=== PATIENT | female | born 1965 | race Caucasian/White ===

== ENCOUNTER 2016-08-27 19:55 | Observation (INO) ==
[2016-08-27] MEDS ORDERED: 0.9 % Sodium Chloride 1,000 ML IV ONE (20:17)
[2016-08-27 20:35] LABS: Bilirubin,Urine Negative (Negative); Blood,Urine Negative (Negative); Clarity,Urine Clear (Clear); Color,Urine Yellow (Yellow); Glucose,Urine (UA) >=1000 mg/dL (Normal); Ketones,Urine Negative (Negative); Leukocyte Esterase,Urine Negative (Negative); Nitrite,Urine Negative (Negative); PH,Urine 6.5 pH Units (5.0-8.0); Protein,Urine Negative (Neg-Trace); Specific Gravity,Urine > 1.030 (1.010-1.025); Urobilinogen,Urine Normal (Normal)
[2016-08-27 20:57] LABS: Basophils # 0.1 K/mcL (0.0-0.2); Basophils % 0.4 %; Eosinophils # 0.4 K/mcL (0.0-0.6); Hematocrit 42.2 % (35.3-44.9); Hemoglobin 14.7 g/dL (11.5-15.4); Immature Granulocytes % 0.6 % (0-4); Lymphocytes # 2.1 K/mcL (0.6-4.6); Lymphocytes % 14.8 %; Mean Corpuscular HGB Conc 34.8 g/dL (31.6-35.5); Mean Corpuscular Hemoglobin 29.4 pg (28.0-33.3); Mean Corpuscular Volume 84.4 fL (83.0-100.0); Mean Platelet Volume 12.2 fL (9.4-12.4); Monocytes # 0.6 K/mcL (0.0-1.3); Monocytes % 4.5 %; Neutrophils # 10.8 K/mcL (1.6-8.9); Platelet Count 218 K/mcL (140-400); Segmented Neutrophils % 76.7 %
[2016-08-27 21:10] LABS: Albumin 3.8 g/dL (3.5-5.0); Albumin/Globulin Ratio 0.9 (1.1-2.2); Bilirubin,Total 0.3 mg/dL (0.2-1.2); Calcium 9.1 mg/dL (8.6-10.8); Globulin 4.2 g/dL (2.4-3.5)
--- NOTE | 2016-08-27 21:29 | Emergency Department Note ---
Disposition Clinical Impression: Uncontrolled type 2 diabetes mellitus with hyperosmolar nonketotic hyperglycemia Disposition: Admitted As Inpatient Referrals: Unassigned,Provider [Non-Partnered Physician] - Forms: ED Satisfaction Letter General Adult HPI - General Chief complaint: ED Nausea/Vomiting/Diarrhea Stated complaint: Hyperglycemia Time Seen by Provider: 08/27/16 20:11 Source: patient Limitations: no limitations Nursing Notes Reviewed: Yes Vital Signs Reviewed: Yes - History of Present Illness HPI Narrative: Patient comes in with elevated blood sugar. Patient states she was seen here yesterday and diagnosed with diabetes. Her previous attending no admission was offered a patient but patient left AGAINST MEDICAL ADVICE. Patient had a blood sugar was elevated today and has had increased urination associated. Patient used her significant other's glucometer and noted that the blood sugar was almost 500. Patient presented emergency department for further evaluation. Patient denies chest pain or shortness of breath. Pain Scale: 0 - Related Data Home Medications Medication Instructions Recorded Confirmed Cetirizine HCl [Zyrtec] 10 mg PO DAILY 08/06/15 08/27/16 Hydrochlorothiazide 25 mg PO DAILY 08/06/15 08/27/16 Fluticasone Propionate Nasal 100 mcg NS DAILY 08/27/16 08/27/16 [Flonase] Ibuprofen [Ibuprofen] 800 mg PO TID PRN 08/27/16 08/27/16 Previous Rx's Medication Instructions Recorded Metformin [Glucophage] 500 mg PO BIDWM #30 tablet 08/26/16 Posaconazole [Noxafil] 300 mg PO DAILY #33 tablet. 08/26/16 Allergies Allergy/AdvReac Type Severity Reaction Status Date / Time Amoxicillin [From Amoxil] Allergy Rash Verified 08/27/16 20:09 All systems ED: reviewed and negative except as stated. Past Medical History - Past Medical History Source: patient Medical history: Reports: diabetes, hypertension, other Surgical history: Reports: non-contributory Psychiatric history: Reports: anxiety [employer] history: Reports: bilateral tubal ligation - Social History Smoking Status: Current every day smoker Smokeless Tobacco Status: No Alcohol use: Reports: none Drug use: Reports: none Physical Exam - General Limitations: no limitations General appearance: alert - Head Head exam: atraumatic, normocephalic, normal inspection - Eye Eye exam: Present: normal appearance, PERRL, EOMI - ENT ENT exam: normal exam, normal oropharynx, mucous membranes moist - Neck Neck exam: Present: normal inspection, full ROM, trachea midline - Chest Chest inspection: Present: normal inspection, symmetric chest wall rise - Respiratory Respiratory exam: Present: normal lung sounds bilaterally - Cardiovascular Cardiovascular exam: Present: normal rhythm, tachycardia - Abdominal Exam Abdominal exam: Present: soft, Non-Tender. Absent: tenderness, distention, guarding, rebound, rigidity - Extremities Exam Extremities exam: Present: normal inspection, full ROM. Absent: tenderness, pedal edema - Back Exam Back exam: Present: normal inspection, full ROM. Absent: tenderness - Neurological Exam Neurological exam: Present: alert, oriented X3 - Psychiatric Psychiatric exam: Present: normal affect, normal mood - Skin Skin exam: Present: warm, dry, intact, normal color Course Vital Signs Temperature 97.3 F L 08/27/16 20:04 Pulse Rate 125 08/27/16 20:04 Respiratory Rate 16 08/27/16 20:04 Blood Pressure 162/96 08/27/16 20:04 O2 Sat by Pulse Oximetry 98 08/27/16 20:04 Temperature 97.3 F L 08/27/16 20:04 Pulse Rate 125 08/27/16 20:09 Respiratory Rate 16 08/27/16 20:09 Blood Pressure 162/96 08/27/16 20:09 O2 Sat by Pulse Oximetry 98 08/27/16 20:09 Oxygen Delivery Oxygen Delivery Room Air Medical Decision Making - Lab Data Lab results reviewed: Yes I reviewed the patient's lab results. Result diagrams: 08/27/16 20:39 08/27/16 20:39 Lab Results 08/27/16 08/27/16 08/27/16 Range/Units 19:58 20:00 20:22 WBC (4.3-11.1) K/mcL RBC (3.82-4.97) M/mcL Hgb (11.5-15.4) g/dL Hct (35.3-44.9) % MCV (83.0-100.0) fL MCH (28.0-33.3) pg MCHC (31.6-35.5) g/dL RDW (11.5-14.5) % Plt Count (140-400) K/mcL MPV (9.4-12.4) fL Immature Gran % (0-4) % Seg Neutrophils % % Lymphocytes % % Monocytes % % Eosinophils % % Basophils % % Neutrophils # (1.6-8.9) K/mcL Lymphocytes # (0.6-4.6) K/mcL Monocytes # (0.0-1.3) K/mcL Eosinophils # (0.0-0.6) K/mcL Basophils # (0.0-0.2) K/mcL Sodium (136-145) mEq/L Potassium (3.5-4.5) mEq/L Chloride (98-109) mEq/L Carbon Dioxide (19-29) mEq/L BUN (7-20) mg/dL Creatinine (0.57-1.11) mg/dL Est GFR ( Amer) (> 60) Est GFR (Non-Af Amer) (> 60) BUN/Creatinine Ratio (6-26) Glucose (70-99) mg/dL POC Glucose > 600 H* > 600 H* (58-89) Calculated Osmolality (280-300) Lactic Acid (0.5-2.2) mmol/L Calcium (8.6-10.8) mg/dL Total Bilirubin (0.2-1.2) mg/dL AST (5-34) Units/L ALT (0-55) Units/L Alkaline Phosphatase (38-126) Units/L Troponin I (0-0.03) ng/mL Serum Total Protein (6.0-8.3) g/dL Albumin (3.5-5.0) g/dL Globulin (2.4-3.5) g/dL Albumin/Globulin Ratio (1.1-2.2) Urine Color Yellow (Yellow) Urine Clarity Clear (Clear) Urine pH 6.5 (5.0-8.0) pH Units Ur Specific [place] > 1.030 H (1.010-1.025) Urine Protein Negative (Neg-Trace) mg/dL Urine Glucose (UA) >=1000 H (Normal) mg/dL Urine Ketones Negative (Negative) mg/dL Urine Blood Negative (Negative) Urine Nitrite Negative (Negative) Urine Bilirubin Negative (Negative) Urine Urobilinogen Normal (Normal) mg/dL Ur Leukocyte Esterase Negative (Negative) Ur Culture Indicated? NO (NO) 08/27/16 08/27/16 08/27/16 Range/Units 20:39 20:39 20:39 WBC 14.0 H (4.3-11.1) K/mcL RBC 5.00 H (3.82-4.97) M/mcL Hgb 14.7 (11.5-15.4) g/dL Hct 42.2 (35.3-44.9) % MCV 84.4 (83.0-100.0) fL MCH 29.4 (28.0-33.3) pg MCHC 34.8 (31.6-35.5) g/dL RDW 13.0 (11.5-14.5) % Plt Count 218 (140-400) K/mcL MPV 12.2 (9.4-12.4) fL Immature Gran % 0.6 (0-4) % Seg Neutrophils % 76.7 % Lymphocytes % 14.8 % Monocytes % 4.5 % Eosinophils % 3.0 % Basophils % 0.4 % Neutrophils # 10.8 H (1.6-8.9) K/mcL Lymphocytes # 2.1 (0.6-4.6) K/mcL Monocytes # 0.6 (0.0-1.3) K/mcL Eosinophils # 0.4 (0.0-0.6) K/mcL Basophils # 0.1 (0.0-0.2) K/mcL Sodium 132 L (136-145) mEq/L Potassium 3.0 L (3.5-4.5) mEq/L Chloride 95 L (98-109) mEq/L Carbon Dioxide 24 (19-29) mEq/L BUN 23 H (7-20) mg/dL Creatinine 1.53 H (0.57-1.11) mg/dL Est GFR ( Amer) 43 L (> 60) Est GFR (Non-Af Amer) 36 L (> 60) BUN/Creatinine Ratio 15 (6-26) Glucose 731 H* (70-99) mg/dL POC Glucose (58-89) Calculated Osmolality 313 H (280-300) Lactic Acid 3.2 H (0.5-2.2) mmol/L Calcium 9.1 (8.6-10.8) mg/dL Total Bilirubin 0.3 (0.2-1.2) mg/dL AST 35 H (5-34) Units/L ALT 53 (0-55) Units/L Alkaline Phosphatase 100 (38-126) Units/L Troponin I (0-0.03) ng/mL Serum Total Protein 8.0 (6.0-8.3) g/dL Albumin 3.8 (3.5-5.0) g/dL Globulin 4.2 H (2.4-3.5) g/dL Albumin/Globulin Ratio 0.9 L (1.1-2.2) Urine Color (Yellow) Urine Clarity (Clear) Urine pH (5.0-8.0) pH Units Ur Specific [place] (1.010-1.025) Urine Protein (Neg-Trace) mg/dL Urine Glucose (UA) (Normal) mg/dL Urine Ketones (Negative) mg/dL Urine Blood (Negative) Urine Nitrite (Negative) Urine Bilirubin (Negative) Urine Urobilinogen (Normal) mg/dL Ur Leukocyte Esterase (Negative) Ur Culture Indicated? (NO) 08/27/16 Range/Units 20:39 WBC (4.3-11.1) K/mcL RBC (3.82-4.97) M/mcL Hgb (11.5-15.4) g/dL Hct (35.3-44.9) % MCV (83.0-100.0) fL MCH (28.0-33.3) pg MCHC (31.6-35.5) g/dL RDW (11.5-14.5) % Plt Count (140-400) K/mcL MPV (9.4-12.4) fL Immature Gran % (0-4) % Seg Neutrophils % % Lymphocytes % % Monocytes % % Eosinophils % % Basophils % % Neutrophils # (1.6-8.9) K/mcL Lymphocytes # (0.6-4.6) K/mcL Monocytes # (0.0-1.3) K/mcL Eosinophils # (0.0-0.6) K/mcL Basophils # (0.0-0.2) K/mcL Sodium (136-145) mEq/L Potassium (3.5-4.5) mEq/L Chloride (98-109) mEq/L Carbon Dioxide (19-29) mEq/L BUN (7-20) mg/dL Creatinine (0.57-1.11) mg/dL Est GFR ( Amer) (> 60) Est GFR (Non-Af Amer) (> 60) BUN/Creatinine Ratio (6-26) Glucose (70-99) mg/dL POC Glucose (58-89) Calculated Osmolality (280-300) Lactic Acid (0.5-2.2) mmol/L Calcium (8.6-10.8) mg/dL Total Bilirubin (0.2-1.2) mg/dL AST (5-34) Units/L ALT (0-55) Units/L Alkaline Phosphatase (38-126) Units/L Troponin I 0.00 (0-0.03) ng/mL Serum Total Protein (6.0-8.3) g/dL Albumin (3.5-5.0) g/dL Globulin (2.4-3.5) g/dL Albumin/Globulin Ratio (1.1-2.2) Urine Color (Yellow) Urine Clarity (Clear) Urine pH (5.0-8.0) pH Units Ur Specific [place] (1.010-1.025) Urine Protein (Neg-Trace) mg/dL Urine Glucose (UA) (Normal) mg/dL Urine Ketones (Negative) mg/dL Urine Blood (Negative) Urine Nitrite (Negative) Urine Bilirubin (Negative) Urine Urobilinogen (Normal) mg/dL Ur Leukocyte Esterase (Negative) Ur Culture Indicated? (NO) - EKG Data EKG #1 EKG attestation: Yes I reviewed and interpreted this EKG. EKG results narrative: Unchanged from previous EKG shows normal: sinus rhythm Rate: normal Rhythm: NSR Critical Care Time Total Critical Care Time: 30 Attestation: Critical care performed: Time is exclusive of separately billable procedures. Time includes: direct patient care, patient reassessment, coordination of patient care, interpretation of data (laboratory data, radiology data, and respiratory data), review of patient's medical records, medical consultation and documentation of patient care. Procedures included in critical care time: Procedures excluded from critical care time:
[2016-08-27] MEDS ORDERED: *HR* Dextrose 50 % in Water (Syg) 50 ML SYRINGE IVP PRN ×2 (21:31→22:12)
[2016-08-27] MEDS ORDERED: Insulin Human Regular 100 UNIT in 0.9 % Sodium Chloride 100 ML IVC SCH (21:45)
[2016-08-27] MEDS ORDERED: Naloxone 0.4 MG/ML INJ IVP PRN (22:12)
[2016-08-27] MEDS ORDERED: *HR* Promethazine 25 MG/ML VIAL IVP PRN (22:12)
[2016-08-27] MEDS ORDERED: Insulin LISPRO 300 UNITS/3 ML VIAL SQ PRN ×2 (22:12)
[2016-08-27] MEDS ORDERED: D5% in 0.45% NACL 1,000 ML IVC PRN (22:12)
[2016-08-27] MEDS ORDERED: Insulin LISPRO 300 UNITS/3 ML VIAL SQ ONE (22:12)
[2016-08-27] MEDS ORDERED: *HR* Morphine 2 MG/ML SYRINGE IVP PRN (22:12)
[2016-08-27] MEDS ORDERED: *HR* OxyCODONE Immed Rel 5 MG TABLET PO PRN (22:12)
[2016-08-27] MEDS ORDERED: 0.9 % Sodium Chloride 1,000 ML IV SCH ×2 (22:15)
[2016-08-27] MEDS ORDERED: 0.45 % Sodium Chloride w/KCl 20 MEQ/1,000 ML MLS IVC SCH (22:15)
[2016-08-27] MEDS ORDERED: 0.9 % Sodium Chloride w KCl 20 MEQ/1,000 ML MLS IVC SCH ×2 (22:15)
[2016-08-27] MEDS ORDERED: Calcium Gluconate 1,000 MG in D5% in Water 100 ML IVPB PRN (22:30)
[2016-08-27] MEDS ORDERED: Sodium Phosphate 30 MMOL in D5% in Water 100 ML IVPB PRN (22:30)
[2016-08-27] MEDS ORDERED: Potassium Phosphate 44 MEQ in 0.9 % Sodium Chloride 250 ML IVPB PRN (22:30)
[2016-08-27 22:50] LABS: Basophils # 0.1 K/mcL (0.0-0.2); Basophils % 0.4 %; Eosinophils # 0.4 K/mcL (0.0-0.6); Eosinophils % 2.7 %; Hematocrit 39.2 % (35.3-44.9); Hemoglobin 13.8 g/dL (11.5-15.4); Immature Granulocytes % 0.6 % (0-4); Lymphocytes # 2.7 K/mcL (0.6-4.6); Lymphocytes % 18.8 %; Mean Corpuscular HGB Conc 35.2 g/dL (31.6-35.5); Mean Corpuscular Hemoglobin 29.9 pg (28.0-33.3); Mean Corpuscular Volume 84.8 fL (83.0-100.0); Monocytes # 0.6 K/mcL (0.0-1.3); Monocytes % 4.4 %; Neutrophils # 10.4 K/mcL (1.6-8.9); Platelet Count 180 K/mcL (140-400); Red Blood Count 4.62 M/mcL (3.82-4.97); Segmented Neutrophils % 73.1 %
[2016-08-27 22:53] LABS: VBG HCO3 29.2 mEq/L (21-27); VBG PH 7.43 pH Units (7.32-7.42)
[2016-08-27 22:55] LABS: Ionized Calcium 1.12 mmol/L (1.15-1.35)
[2016-08-27 23:04] LABS: Magnesium 1.5 mg/dL (1.6-2.6); Phosphorous 1.8 mg/dL (2.3-4.7)
[2016-08-27 23:43] LABS: BUN/Creatinine Ratio 18 (6-26); Blood Urea Nitrogen 21 mg/dL (7-20); Carbon Dioxide 24 mEq/L (19-29); Chloride 99 mEq/L (98-109); Glucose 489 mg/dL (70-99); Osmolality,Calculated 301 (280-300); Potassium 3.1 mEq/L (3.5-4.5); Sodium 133 mEq/L (136-145); eGFR For African Americans > 60 (> 60); eGFR For Non-African Americans 50 (> 60)
[2016-08-28] MEDS ORDERED: Albuterol 2.5 MG/3 ML NEBULIZER IH PRN (01:09)
[2016-08-28] MEDS: D5% in 0.45% NACL w KCl 20 MEQ/1,000 ML MLS IVC PRN ×2 (01:46→05:46)
[2016-08-28 02:56] LABS: Bilirubin,Urine Negative (Negative); Blood,Urine Negative (Negative); Clarity,Urine Clear (Clear); Color,Urine Yellow (Yellow); Glucose,Urine (UA) >=1000 mg/dL (Normal); Ketones,Urine Negative (Negative); Leukocyte Esterase,Urine Negative (Negative); Nitrite,Urine Negative (Negative); Protein,Urine Negative (Neg-Trace); Specific Gravity,Urine 1.025 (1.010-1.025); Urobilinogen,Urine Normal (Normal)
[2016-08-28] MEDS ORDERED: Insulin Human Regular 100 UNIT in 0.9 % Sodium Chloride 100 ML IVC SCH (03:00)
[2016-08-28 03:03] LABS: Amphetamine Screen,Urine Negative ng/mL (Cutoff=1000); Barbiturate Screen,Urine Negative ng/mL (Cutoff=200); Benzodiazepines Screen,Urine Negative ng/mL (Cutoff=200); Cannabinoid Screen,Urine Negative ng/mL (Cutoff = 50); Cocaine Screen,Urine Negative ng/mL (Cutoff= 300); Opiate Screen,Urine Negative ng/mL (Cutoff=300); Phencyclidine Screen,Urine Negative ng/mL (Cutoff=25)
[2016-08-28 03:22] LABS: Adenovirus Not Detected (Not Detect); Bordetella Pertussis Not Detected (Not Detect); Chlamydophila pneumoniae Not Detected (Not Detect); Coronavirus 229E Not Detected (Not Detect); Coronavirus HKU1 Not Detected (Not Detect); Coronavirus NL63 Not Detected (Not Detect); Coronavirus OC43 Not Detected (Not Detect); Human Metapneumovirus Not Detected (Not Detect); Human Rhinovirus/Enterovirus Not Detected (Not Detect); Influenza A Subtype 2009 H1 Not Detected (Not Detect); Influenza A Untypeable Not Detected (Not Detect); Influenza B Not Detected (Not Detect); Mycoplasma pneumoniae Not Detected (Not Detect); Parainfluenza Virus 1 Not Detected (Not Detect); Parainfluenza Virus 2 Not Detected (Not Detect); Parainfluenza Virus 3 Not Detected (Not Detect); Parainfluenza Virus 4 Not Detected (Not Detect); Respiratory Syncytial Virus Not Detected (Not Detect)
[2016-08-28] MEDS: Ipratropium/Albuterol Neb 3 ML IH SCH ×4 (04:22→23:39)
[2016-08-28 04:32] LABS: Basophils # 0.1 K/mcL (0.0-0.2); Basophils % 0.6 %; Eosinophils # 0.4 K/mcL (0.0-0.6); Eosinophils % 3.3 %; Hematocrit 36.5 % (35.3-44.9); Hemoglobin 12.8 g/dL (11.5-15.4); Immature Granulocytes % 0.8 % (0-4); Lymphocytes # 2.7 K/mcL (0.6-4.6); Lymphocytes % 20.8 %; Mean Corpuscular HGB Conc 35.1 g/dL (31.6-35.5); Mean Corpuscular Hemoglobin 29.6 pg (28.0-33.3); Mean Corpuscular Volume 84.5 fL (83.0-100.0); Mean Platelet Volume 11.8 fL (9.4-12.4); Monocytes # 0.7 K/mcL (0.0-1.3); Monocytes % 5.1 %; Neutrophils # 9.1 K/mcL (1.6-8.9); Platelet Count 181 K/mcL (140-400); Red Blood Count 4.32 M/mcL (3.82-4.97); Segmented Neutrophils % 69.4 %
[2016-08-28 04:34] LABS: VBG HCO3 29.9 mEq/L (21-27); VBG PH 7.43 pH Units (7.32-7.42)
[2016-08-28 04:40] LABS: Prothrombin Time 11.3 Seconds (9.4-12.1)
[2016-08-28 04:42] LABS: Activated Partial Thrombo Time 24.9 Seconds (26.0-36.0)
[2016-08-28 04:49] LABS: BUN/Creatinine Ratio 20 (6-26); Blood Urea Nitrogen 16 mg/dL (7-20); Calcium 8.3 mg/dL (8.6-10.8); Carbon Dioxide 24 mEq/L (19-29); Chloride 103 mEq/L (98-109); Glucose 149 mg/dL (70-99); Magnesium 1.3 mg/dL (1.6-2.6); Osmolality,Calculated 286 (280-300); Phosphorous 2.4 mg/dL (2.3-4.7); Potassium 2.8 mEq/L (3.5-4.5); Sodium 136 mEq/L (136-145); eGFR For African Americans > 60 (> 60); eGFR For Non-African Americans > 60 (> 60)
[2016-08-28 04:52] LABS: Chol/HDL Ratio 7.1 (0-4.9)
[2016-08-28] MEDS: Magnesium Sulfate 2 GM in D5% in Water 100 ML IVPB PRN ×2 (05:08→14:20)
[2016-08-28 05:19] LABS: Thyroid Stimulating Hormone 3.46 mcIU/mL (0.350-4.840)
[2016-08-28] MEDS ORDERED: D5% in Water 1,000 ML IV PRN (05:36)
[2016-08-28] MEDS ORDERED: Dextrose Gel 15 GM PO PRN ×2 (05:36)
[2016-08-28] MEDS ORDERED: Insulin DETEMIR 100 UNIT/ML X5UNITS SQ STA (05:36)
[2016-08-28 05:47] LABS: Hemoglobin A1C 10.2 %
--- NOTE | 2016-08-28 07:27 | Internal Med History&Physical ---
Date of Encounter: 08/27/16 Time of Encounter: 22:30 Assessment and Plan (1) URI with cough and congestion Status: Resolved . (2) Acute sinusitis, unspecified Status: Chronic . Qualifiers: Sinusitis location: sphenoidal Recurrence: recurrent Qualified Code(s): J01.31 - Acute recurrent sphenoidal sinusitis (3) Poorly controlled diabetes mellitus Status: Chronic . (4) HTN (hypertension) Status: Chronic Qualifiers: Hypertension type: essential hypertension Qualified Code(s): I10 - Essential (primary) hypertension (5) Obesity (BMI 30-39.9) Status: Chronic . (6) Nicotine dependence with nicotine-induced disorder Status: Chronic .. Qualifiers: Nicotine product type: cigarettes Qualified Code(s): F17.219 - Nicotine dependence, cigarettes, with unspecified nicotine-induced disorders (7) SIRS due to infectious process with acute organ dysfunction Status: Acute . (8) Acute kidney injury superimposed on chronic kidney disease Status: Acute . (9) CKD (chronic kidney disease) stage 3, GFR 30-59 ml/min Status: Chronic . (10) Lactic acid acidosis Status: Acute . (11) Transaminitis Status: Acute . (12) Sepsis Status: Acute . Qualifiers: Sepsis type: sepsis due to unspecified organism Qualified Code(s): A41.9 - Sepsis, unspecified organism (13) Uncontrolled type 2 diabetes mellitus with hyperosmolar nonketotic hyperglycemia Status: Acute . Internal Medicine - H&P: HPI Chief complaint: Intractable nausea vomiting diarrhea Admitted From: Emergency Dept Plans for Post Hospital Care: Home History of present illness: Ms. Gudino is a 51 year old female with history significant for type II DM ( poorly controlled), hypertension, dyslipidemia, osteoarthritis, allergic rhinitis, chronic sinusitis, obesity, nicotine dependency with complaints of intractable nausea and vomiting and diarrhea in the setting of hyperglycemia. Patient presented to the emergency department today prior to his presentation with concerns regarding upper respiratory tract infection with preliminary diagnosis given of acute sinusitis. She did report some dehydration and generalized weakness at that time and symptoms that she thought might be related to active infection. However she left AGAINST MEDICAL ADVICE before completing her formal evaluation and treatment. She was found then to have evidence for tachycardia and accelerated hypertension and recommendations for inpatient stay given that he used with her at that presentation was 519 with an osmolality of 304. However she became more symptomatic with increasing nausea and vomiting and malaise and return for further evaluation and disposition. That she had checked her blood sugar at the time of her decision to return and found it to be 500. Screening studies confirmed a blood glucose of greater than 600 with glycosuria, neutrophilic leukocytosis, hyponatremia, hypokalemia, hypochloremia, AK stage III, glucose of 731 osmolality of 313. Lactic acid was 3.2. Mild transaminitis was noted. The patient was admitted to undergo formal HHS/DKA treatment protocols and surveillance. Workup and treatment proceed comprehensively. Past Med Surg Social Fam HX - Past Medical History Source: old records reviewed Medical history: arthritis, COPD, diabetes, hypertension, other Psychiatric history: anxiety, other - Past Surgical History Surgical History: non-contributory, other - Social History Smoking Status: Current every day smoker Smokeless Tobacco Status: No Alcohol use: none Drug use: none Occupational status: unemployed Current living situation: Home, With Family Activity Level: Independent ambulation, Mostly sedentary Recent Out of Country Travel Within the Last 8 Weeks: No Exposure or Possible Exposure to Illness During Travel: No - Family History Mother Name: Milagro Gudino Family Member Ethnicity: Non- Living Status: Age at : 77 Cause of : Alzheimers Internal Medicine - H&P: Meds Cetirizine HCl [Zyrtec] 10 mg PO DAILY 08/06/15 [History] Hydrochlorothiazide 25 mg PO DAILY 08/06/15 [History] Fluticasone Propionate Nasal [Flonase] 100 mcg NS DAILY 08/27/16 [History] Ibuprofen 800 mg PO TID PRN 08/27/16 [History] Metformin [Glucophage] 500 mg PO BIDWM #30 tablet 08/28/16 [Rx] Saline Nasal [place] [[place] Nasal [place]] 2 spray NS QID 10 Days 08/29/16 [Rx] Metformin [Glucophage] 500 mg PO BID #60 tablet 09/06/16 [Rx] Ondansetron ODT [Zofran ODT] 4 mg SL Q6HR PRN #12 tab.rapdis 09/06/16 [Rx] Potassium Chloride [K-Tab ER] 20 meq PO BID #10 tablet.er 09/06/16 [Rx] Allergies Amoxicillin [From Amoxil] Allergy (Verified 09/06/16 00:19) Rash All Systems PM: A 10-system review of systems was performed and is negative for pertinent findings except as documented above in the HPI. - Constitutional Constitutional: as per HPI, malaise, no chills, no fever(s), no night sweats - EENT Eyes: as per HPI, no change in vision, no discharge, no pain, no photophobia Ears: as per HPI, no ear discharge, no ear pain, no tinnitus Nose, mouth and throat: as per HPI, nasal congestion, post-nasal drip, sinus pain, sinus pressure, other, no dysphagia, no nasal discharge, no neck pain, no sore throat - Cardiovascular Cardiovascular ROS IM: as per HPI, no chest pain, no diaphoresis, no dyspnea, no lightheadedness, no palpitations, no syncope - Respiratory Respiratory: as per HPI, cough, dyspnea, dyspnea on exertion, wheezing, no excessive phlegm production - Gastrointestinal Gastrointestinal: as per HPI, abdominal pain, bloating, cramping, diarrhea, nausea, vomiting, no hematemesis, no hematochezia, no melena - Genitourinary Genitourinary: as per HPI, no change in urinary stream, no dysuria, no flank pain, no hematuria - Musculoskeletal Musculoskeletal ROS IM: as per HPI, no numbness, no tingling - Integumentary Integumentary IM: as per HPI, rash, no unusual bruising - Neurological Neurological ROS: as per HPI, no confusion, no convulsions, no focal weakness, no numbness, no tingling, no tremor(s) - Psychiatric Psychiatric: as per HPI - Endocrine Endocrine IM: as per HPI - Hematologic/Lymphatic Hematologic/Lymphatic: as per HPI, no easy bruising - Allergic/Immunologic Allergic/Immunologic: as per HPI - Constitutional Vitals: Temp Pulse Resp BP Pulse Ox 97.6 F 74 18 113/53 97 08/28/16 05:51 08/28/16 05:51 08/28/16 05:51 08/28/16 05:51 08/28/16 05:51 General appearance: Present: disheveled, mild distress, A&O X 3, obese, answers questions appropriately - Head Head exam: Present: atraumatic, normocephalic - Eye Eye exam: Present: EOMI, PERRL, conjuntiva pink, sclera anicteric Pupils: Present: normal accommodation, PERRL - ENT ENT exam: Present: mucous membranes dry, normal external ear exam, normal oropharynx - Neck Neck exam general surgery: Present: full ROM, supple, trachea midline. Absent: lymphadenopathy, tenderness, nuchal rigidity, thyromegaly - Respiratory Respiratory exam: Present: chest wall tenderness, decreased breath sounds, rhonchi, wheezes. Absent: accessory muscle use, rales - Cardiovascular Cardiovascular exam: Present: distant heart sounds, RRR, +S1, +S2. Absent: diastolic murmur, gallop, rubs, systolic murmur - GI/Abdominal GI/Abdominal exam: Present: normal bowel sounds, soft, no peritoneal signs. Absent: distended, tenderness - Extremities Exam Extremities exam: Present: full ROM, warm, radial pulses palpable and symetrical. Absent: calf tenderness, cyanotic, pedal edema - Neurological Exam Neurological exam: Present: alert, CN II-XII intact, oriented X3, no focal deficits. Absent: pronater drift, facial droop, speech deficit - Psychiatric Psychiatric exam: Present: normal affect, normal mood - Skin Skin exam: Present: dry, intact, warm. Absent: petechiae, rash, urticaria, vesicles Internal Med - H&P Results - Labs CBC & Chem 7: 08/29/16 06:07 08/29/16 06:07 Labs: Short CBC 08/27/16 08/28/16 Range/Units 22:37 04:03 WBC 14.2 H 13.1 H (4.3-11.1) K/mcL Hgb 13.8 12.8 (11.5-15.4) g/dL Hct 39.2 36.5 (35.3-44.9) % Plt Count 180 181 (140-400) K/mcL Neutrophils # 10.4 H 9.1 H (1.6-8.9) K/mcL BMP 08/27/16 08/28/16 22:37 04:03 Sodium 133 L 136 Potassium 3.1 L 2.8 L Chloride 99 103 Carbon Dioxide 24 24 BUN 21 H 16 Creatinine 1.15 H 0.80 Glucose 489 H 149 H Calcium 9.0 8.3 L Cardiac Enzymes 08/27/16 08/28/16 Range/Units 22:37 04:03 Troponin I 0.01 0.01 (0-0.03) ng/mL Urine 03/17/17 Range/Units 02:30 Urine Color Yellow (Yellow) Urine Clarity Clear (Clear) Urine pH 6.0 (5.0-8.0) pH Units Ur Specific Cameron 1.025 (1.010-1.025) Urine Protein Negative (Neg-Trace) mg/dL Urine Glucose (UA) >=1000 H (Normal) mg/dL Vital Signs Temp Pulse Resp BP Pulse Ox 08/28/16 05:51 97.6 F 74 18 113/53 97 08/28/16 04:23 18 99 08/28/16 00:24 98.1 F 84 16 123/82 98 08/27/16 23:55 16 104/81 08/27/16 22:39 89 16 104/81 97 08/27/16 21:39 106 16 149/89 96 08/27/16 20:39 101 16 137/102 97 08/27/16 20:09 125 16 162/96 98 08/27/16 20:04 97.3 F L 125 16 162/96 98 Intake and Output 08/27/16 08/27/16 08/28/16 15:59 23:59 07:59 Intake Total 1000 / 1000 1313.4 / 1313.4 Output Total 225 / 225 Balance 1000 / 1000 1088.4 / 1088.4 Intake: IV Fluids 1000 / 1000 1313.4 / 1313.4 0.9 % Sodium Chloride 1, 1000 / 1000 000 ML @ Wide Open IV BOLUS ONE Rx#:[id number] KCl 20mEq in 0.45 % NaCl 300 / 300 20 meq In 1,000 ml @ 250 mls/hr IVC .Q4H HOOD Rx#: [id number] KCl 20mEq IN D5%-0.45 1000 / 1000 NACL 20 meq In 1,000 ml @ 250 mls/hr IVC .Q4H PRN Rx#:[id number] HumuLIN R 100 UNIT In 0. 13.4 / 13.4 9 % Sodium Chloride 100 ML @ 0.1 UNIT/KG/HR 8.6 mls/hr IVC CONT HOOD Rx#: [id number] Output: Urine 225 / 225 Other: Weight 85.275 kg 86.273 kg Blood Glucose* 212 Patient Weight 08/28/16 23:59 Weight 86.273 kg 08/27/16 08/28/16 22:37 04:03 VBG pH 7.43 H 7.43 H VBG pCO2 44 45 VBG pO2 45 H 74 H VBG HCO3 29.2 H 29.9 H Allergies Allergy/AdvReac Type Severity Reaction Status Date / Time Amoxicillin [From Amoxil] Allergy Rash Verified 08/27/16 20:09 Abnormal lab results WBC 13.1 K/mcL (4.3-11.1) H 08/28/16 04:03 Neutrophils # 9.1 K/mcL (1.6-8.9) H 08/28/16 04:03 APTT 24.9 Seconds (26.0-36.0) L 08/28/16 04:03 VBG pH 7.43 pH Units (7.32-7.42) H 08/28/16 04:03 VBG pO2 74 mmHg (25-40) H 08/28/16 04:03 VBG HCO3 29.9 mEq/L (21-27) H 08/28/16 04:03 Potassium 2.8 mEq/L (3.5-4.5) L 08/28/16 04:03 Glucose 149 mg/dL (70-99) H 08/28/16 04:03 POC Glucose > 600 (58-89) H* 08/27/16 20:00 Hemoglobin A1c 10.2 % (-5.6) H 08/28/16 04:03 Serum Osmolality 312 mOsm/kg (280-300) H 08/27/16 22:37 Calcium 8.3 mg/dL (8.6-10.8) L 08/28/16 04:03 Ionized Calcium 1.12 mmol/L (1.15-1.35) L 08/28/16 04:03 Magnesium 1.3 mg/dL (1.6-2.6) L 08/28/16 04:03 AST 35 Units/L (5-34) H 08/27/16 20:39 C-Reactive Protein 15 mg/L (Less than 5) H 08/28/16 04:03 Globulin 4.2 g/dL (2.4-3.5) H 08/27/16 20:39 Albumin/Globulin Ratio 0.9 (1.1-2.2) L 08/27/16 20:39 Triglycerides 233 mg/dL (< 150) H 08/28/16 04:03 Cholesterol 206 mg/dL (< 200) H 08/28/16 04:03 LDL Cholesterol, Calc 130 mg/dL (0-99) H 08/28/16 04:03 VLDL Cholesterol, Calc 47 mg/dL (< 31) H 08/28/16 04:03 HDL Cholesterol 29 mg/dL (40-59) L 08/28/16 04:03 Cholesterol/HDL Ratio 7.1 (0-4.9) H 08/28/16 04:03 Urine Glucose (UA) >=1000 mg/dL (Normal) H 08/28/16 02:30 Laboratory Results WBC 13.1 K/mcL (4.3-11.1) H 08/28/16 04:03 RBC 4.32 M/mcL (3.82-4.97) 08/28/16 04:03 Hgb 12.8 g/dL (11.5-15.4) 08/28/16 04:03 Hct 36.5 % (35.3-44.9) 08/28/16 04:03 MCV 84.5 fL (83.0-100.0) 08/28/16 04:03 MCH 29.6 pg (28.0-33.3) 08/28/16 04:03 MCHC 35.1 g/dL (31.6-35.5) 08/28/16 04:03 RDW 13.0 % (11.5-14.5) 08/28/16 04:03 Plt Count 181 K/mcL (140-400) 08/28/16 04:03 MPV 11.8 fL (9.4-12.4) 08/28/16 04:03 Immature Gran % 0.8 % (0-4) 08/28/16 04:03 Seg Neutrophils % 69.4 % 08/28/16 04:03 Lymphocytes % 20.8 % 08/28/16 04:03 Monocytes % 5.1 % 08/28/16 04:03 Eosinophils % 3.3 % 08/28/16 04:03 Basophils % 0.6 % 08/28/16 04:03 Neutrophils # 9.1 K/mcL (1.6-8.9) H 08/28/16 04:03 Lymphocytes # 2.7 K/mcL (0.6-4.6) 08/28/16 04:03 Monocytes # 0.7 K/mcL (0.0-1.3) 08/28/16 04:03 Eosinophils # 0.4 K/mcL (0.0-0.6) 08/28/16 04:03 Basophils # 0.1 K/mcL (0.0-0.2) 08/28/16 04:03 PT 11.3 Seconds (9.4-12.1) 08/28/16 04:03 INR 1.0 08/28/16 04:03 APTT 24.9 Seconds (26.0-36.0) L 08/28/16 04:03 VBG pH 7.43 pH Units (7.32-7.42) H 08/28/16 04:03 VBG pCO2 45 mmHg (41-51) 08/28/16 04:03 VBG pO2 74 mmHg (25-40) H 08/28/16 04:03 VBG HCO3 29.9 mEq/L (21-27) H 08/28/16 04:03 Sodium 136 mEq/L (136-145) 08/28/16 04:03 Potassium 2.8 mEq/L (3.5-4.5) L 08/28/16 04:03 Chloride 103 mEq/L (98-109) 08/28/16 04:03 Carbon Dioxide 24 mEq/L (19-29) 08/28/16 04:03 BUN 16 mg/dL (7-20) 08/28/16 04:03 Creatinine 0.80 mg/dL (0.57-1.11) 08/28/16 04:03 Est GFR ( Amer) > 60 (> 60) 08/28/16 04:03 Est GFR (Non-Af Amer) > 60 (> 60) 08/28/16 04:03 BUN/Creatinine Ratio 20 (6-26) 08/28/16 04:03 Glucose 149 mg/dL (70-99) H 08/28/16 04:03 POC Glucose > 600 (58-89) H* 08/27/16 20:00 Est Mean Plasma Glucose 246 mg/dl 08/28/16 04:03 Hemoglobin A1c 10.2 % (-5.6) H 08/28/16 04:03 Serum Osmolality 312 mOsm/kg (280-300) H 08/27/16 22:37 Calculated Osmolality 286 (280-300) 08/28/16 04:03 Lactic Acid 1.5 mmol/L (0.5-2.2) 08/28/16 04:03 Calcium 8.3 mg/dL (8.6-10.8) L 08/28/16 04:03 Ionized Calcium 1.12 mmol/L (1.15-1.35) L 08/28/16 04:03 Phosphorus 2.4 mg/dL (2.3-4.7) 08/28/16 04:03 Magnesium 1.3 mg/dL (1.6-2.6) L 08/28/16 04:03 Total Bilirubin 0.3 mg/dL (0.2-1.2) 08/27/16 20:39 AST 35 Units/L (5-34) H 08/27/16 20:39 ALT 53 Units/L (0-55) 08/27/16 20:39 Alkaline Phosphatase 100 Units/L (38-126) 08/27/16 20:39 Troponin I 0.01 ng/mL (0-0.03) 08/28/16 04:03 C-Reactive Protein 15 mg/L (Less than 5) H 08/28/16 04:03 B-Natriuretic Peptide < 10 pg/mL (0-100) 08/28/16 04:03 Serum Total Protein 8.0 g/dL (6.0-8.3) 08/27/16 20:39 Albumin 3.8 g/dL (3.5-5.0) 08/27/16 20:39 Globulin 4.2 g/dL (2.4-3.5) H 08/27/16 20:39 Albumin/Globulin Ratio 0.9 (1.1-2.2) L 08/27/16 20:39 Triglycerides 233 mg/dL (< 150) H 08/28/16 04:03 Cholesterol 206 mg/dL (< 200) H 08/28/16 04:03 LDL Cholesterol, Calc 130 mg/dL (0-99) H 08/28/16 04:03 VLDL Cholesterol, Calc 47 mg/dL (< 31) H 08/28/16 04:03 HDL Cholesterol 29 mg/dL (40-59) L 08/28/16 04:03 Cholesterol/HDL Ratio 7.1 (0-4.9) H 08/28/16 04:03 Beta-Hydroxybutyric Acd 0.12 mmol/L (0.02-0.27) 08/27/16 22:37 TSH 3.460 mcIU/mL (0.350-4.840) 08/28/16 04:03 Serum , Qual Negative (Negative) 08/27/16 22:37 Urine Color Yellow (Yellow) 08/28/16 02:30 Urine Clarity Clear (Clear) 08/28/16 02:30 Urine pH 6.0 pH Units (5.0-8.0) 08/28/16 02:30 Ur Specific [place] 1.025 (1.010-1.025) 08/28/16 02:30 Urine Protein Negative mg/dL (Neg-Trace) 08/28/16 02:30 Urine Glucose (UA) >=1000 mg/dL (Normal) H 08/28/16 02:30 Urine Ketones Negative mg/dL (Negative) 08/28/16 02:30 Urine Blood Negative (Negative) 08/28/16 02:30 Urine Nitrite Negative (Negative) 08/28/16 02:30 Urine Bilirubin Negative (Negative) 08/28/16 02:30 Urine Urobilinogen Normal mg/dL (Normal) 08/28/16 02:30 Ur Leukocyte Esterase Negative (Negative) 08/28/16 02:30 Ur Culture Indicated? NO (NO) 08/27/16 20:22 Urine Opiates Screen Negative ng/mL (Wezhev=355) 08/28/16 02:30 Ur Barbiturates Screen Negative ng/mL (Islell=854) 08/28/16 02:30 Ur Phencyclidine Scrn Negative ng/mL (Cutoff=25) 08/28/16 02:30 Ur Amphetamines Screen Negative ng/mL (Vaaqcr=4152) 08/28/16 02:30 U Benzodiazepines Scrn Negative ng/mL (Glpqso=803) 08/28/16 02:30 Urine Cocaine Screen Negative ng/mL (Cutoff= 300) 08/28/16 02:30 U Marijuana (THC) Screen Negative ng/mL (Cutoff = 50) 08/28/16 02:30 Chlamy pneumoniae PCR Not Detected (Not Detect) 08/28/16 01:10 Adenovirus (PCR) Not Detected (Not Detect) 08/28/16 01:10 B. pertussis DNA (PCR) Not Detected (Not Detect) 08/28/16 01:10 Coronavirus OC43 (PCR) Not Detected (Not Detect) 08/28/16 01:10 Coronavirus HKU1 (PCR) Not Detected (Not Detect) 08/28/16 01:10 Coronavirus 229E (PCR) Not Detected (Not Detect) 08/28/16 01:10 Coronavirus NL63 (PCR) Not Detected (Not Detect) 08/28/16 01:10 Human Metapneumovirus Not Detected (Not Detect) 08/28/16 01:10 Influenza A (H1) PCR Not Detected (Not Detect) 08/28/16 01:10 Influ A (H1N1/09) PCR Not Detected (Not Detect) 08/28/16 01:10 Influenza A (H3) PCR Not Detected (Not Detect) 08/28/16 01:10 Influenza A Untype (PCR) Not Detected (Not Detect) 08/28/16 01:10 Influenza Type B (PCR) Not Detected (Not Detect) 08/28/16 01:10 M.pneumoniae DNA (PCR) Not Detected (Not Detect) 08/28/16 01:10 Parainfluenza 1 (PCR) Not Detected (Not Detect) 08/28/16 01:10 Parainfluenza 2 (PCR) Not Detected (Not Detect) 08/28/16 01:10 Parainfluenza 3 (PCR) Not Detected (Not Detect) 08/28/16 01:10 Parainfluenza 4 (PCR) Not Detected (Not Detect) 08/28/16 01:10 RSV (PCR) Not Detected (Not Detect) 08/28/16 01:10 Entero/Rhino (PCR) Not Detected (Not Detect) 08/28/16 01:10 - ABG Interpretation ABG results: 08/27/16 08/28/16 22:37 04:03 VBG pH 7.43 H 7.43 H VBG pCO2 44 45 VBG pO2 45 H 74 H VBG HCO3 29.2 H 29.9 H - Attending Attestation My signature below is to certify that this patient is under my care and that I, or nurse practitioner, or a physician's occupational therapist's assistant working with me, has a face-to -face encounter with this patient. Allergies Amoxicillin [From Amoxil] Allergy (Verified 08/27/16 20:09) Rash Home Medications Medication Instructions Recorded Confirmed Type Cetirizine HCl [Zyrtec] 10 mg PO DAILY 08/06/15 08/27/16 History Hydrochlorothiazide 25 mg PO DAILY 08/06/15 08/27/16 History Fluticasone Propionate Nasal 100 mcg NS DAILY 08/27/16 08/27/16 History [Flonase] Ibuprofen [Ibuprofen] 800 mg PO TID PRN 08/27/16 08/27/16 History I & O 08/25/16 08/26/16 08/27/16 08/28/16 23:59 23:59 23:59 23:59 Intake Total 1000 / 1000 1313.4 / 1313.4 Output Total 225 / 225 Balance 1000 / 1000 1088.4 / 1088.4 Weight 85.275 kg 86.273 kg Intake: IV Fluids 1000 / 1000 1313.4 / 1313.4 0.9 % Sodium Chloride 1, 1000 / 1000 000 ML @ Wide Open IV BOLUS ONE Rx#:[id number] KCl 20mEq in 0.45 % NaCl 300 / 300 20 meq In 1,000 ml @ 250 mls/hr IVC .Q4H HOOD Rx#: [id number] KCl 20mEq IN D5%-0.45 1000 / 1000 NACL 20 meq In 1,000 ml @ 250 mls/hr IVC .Q4H PRN Rx#:[id number] HumuLIN R 100 UNIT In 0. 13.4 / 13.4 9 % Sodium Chloride 100 ML @ 0.1 UNIT/KG/HR 8.6 mls/hr IVC CONT HOOD Rx#: [id number] Output: Urine 225 / 225 Other: Blood Glucose* 212 Medications Acetaminophen (Tylenol) 650 mg PO Q6HR PRN PRN Reason: Mild Pain (1-3) Stop: 02/26/17 22:13 Albuterol Sulfate (Proventil Neb) 2.5 mg IH Q2H PRN PRN Reason: Shortness Of Breath/Wheezing Stop: 02/27/17 01:10 Albuterol/Ipratropium (Duoneb) 3 ml IH QIDR HOOD Stop: 02/27/17 05:01 Last Admin: 08/28/16 04:22 Dose: 3 ml Dextrose/Water (Dextrose 50% (Syg)) 50 ml IVP ONCE PRN PRN Reason: Hypoglycemia Stop: 02/26/17 21:32 Dextrose/Water (Dextrose 50% (Syg)) 25 ml IVP Q15MIN PRN PRN Reason: Hypoglycemia Stop: 02/26/17 22:13 Docusate Sodium (Colace) 100 mg PO BID HOOD Stop: 02/27/17 09:01 Glucagon (Glucagen) 1 mg IM ONCE PRN PRN Reason: Hypoglycemia Stop: 02/27/17 05:37 Glucose (Gluctose) 15 gm PO ONCE PRN PRN Reason: Hypoglycemia Stop: 02/27/17 05:37 Glucose (Gluctose) 30 gm PO ONCE PRN PRN Reason: Hypoglycemia Stop: 02/27/17 05:37 Insulin Human Regular 100 unit (/ Sodium Chloride) 101 mls @ 8.61 mls/hr IVC CONT HOOD; 0.1 UNIT/KG/HR PRN Reason: Protocol Stop: 02/26/17 21:46 Last Titration: 08/28/16 04:30 Dose: 0 unit/kg/hr, 0 mls/hr Dextrose/Sodium Chloride (D5% And 0.45% Nacl 1000 Ml Bag) 1,000 mls @ 250 mls/ hr IVC .Q4H PRN PRN Reason: SEE COMMENTS Stop: 02/26/17 22:13 Potassium Chloride/Dextrose/Sod Cl (Kcl 20meq In D5%-0.45 Nacl) 20 meq in 1, 000 mls @ 250 mls/hr IVC .Q4H PRN PRN Reason: SEE COMMENTS Stop: 02/26/17 22:13 Last Admin: 08/28/16 05:46 Dose: 250 mls/hr Potassium Chloride (Potassium Chloride 10 Meq/100ml) 10 meq in 100 mls @ 100 mls/hr IVPB Q1H PRN PRN Reason: Potassium less than 3.3 mEq/L Calcium Gluconate 1,000 mg/ (Dextrose) 110 mls @ 50 mls/hr IVPB Q6HR PRN PRN Reason: Hypocalcemia Stop: 02/26/17 22:31 Magnesium Sulfate 2 gm/ (Dextrose) 104 mls @ 50 mls/hr IVPB Q6H PRN PRN Reason: Hypomagnesemia Stop: 02/26/17 22:31 Last Admin: 08/28/16 05:08 Dose: 50 mls/hr Potassium Chloride (Potassium Chloride 10 Meq/100ml) 10 meq in 100 mls @ 100 mls/hr IVPB Q1H PRN PRN Reason: Potassium less than 4 Stop: 02/26/17 22:31 Potassium Phosphate 44 meq/ (Sodium Chloride) 260 mls @ 40 mls/hr IVPB Q10H PRN PRN Reason: Phosphate less than 3 Stop: 02/26/17 22:31 Sodium Phosphate 30 mmol/ (Dextrose) 110 mls @ 16 mls/hr IVPB Q12H PRN PRN Reason: Hypophosphatemia Stop: 02/26/17 22:31 Insulin Human Regular 100 unit (/ Sodium Chloride) 101 mls @ 8.6 mls/hr IVC CONT HOOD; 0.1 UNIT/KG/HR PRN Reason: Protocol Stop: 02/27/17 03:01 Last Titration: 08/28/16 05:29 Dose: 0.07 unit/kg/hr, 6.3 mls/hr Dextrose (Dextrose 5%) 1,000 mls @ 100 mls/hr IV CONT PRN PRN Reason: HYPOGLYCEMIA Stop: 02/27/17 05:37 Insulin Detemir (Levemir) 22 unit 0.25 unit/kg (22 unit) SQ HS HOOD Stop: 02/27/17 21:01 Insulin Human Lispro (Humalog) 0 units SQ TIDAC HOOD PRN Reason: Protocol Stop: 02/27/17 07:31 Insulin Human Lispro (Humalog) 0 units SQ HS HOOD PRN Reason: Protocol Stop: 02/27/17 21:01 Morphine Sulfate (Morphine Sulfate) 2 mg IVP Q4HR PRN PRN Reason: Severe Pain (7-10) Stop: 02/26/17 22:13 Naloxone HCl (Narcan) 0.4 mg IVP Q2MIN PRN PRN Reason: Opioid Reversal Stop: 02/26/17 22:13 Nicotine (Nicoderm) 21 mg TD DAILY HOOD Stop: 02/27/17 09:01 Omeprazole (Prilosec) 20 mg PO DAILY@0630 HOOD PRN Reason: Protocol Stop: 02/27/17 06:31 Last Admin: 08/28/16 05:08 Dose: 20 mg Oxycodone HCl (Roxicodone) 5 mg PO Q6HR PRN PRN Reason: Moderate Pain (4-6) Stop: 02/26/17 22:13 Potassium Chloride (Potassium Chloride) 40 meq PO DAILY PRN PRN Reason: Hypokalemia Stop: 02/26/17 22:31 Last Admin: 08/28/16 05:08 Dose: 40 meq Potassium Phos/Sodium Phos (Neutra-Phos) 2 each PO DAILY PRN; Protocol PRN Reason: Hypophosphatemia Stop: 02/26/17 22:31 Promethazine HCl (Phenergan) 12.5 mg IVP Q6HR PRN PRN Reason: Nausea And Vomiting Stop: 02/26/17 22:13 Discontinued Medications Sodium Chloride (0.9 % Sodium Chloride) 1,000 mls @ 0 mls/hr IV BOLUS ONE PRN Reason: Wide Open Stop: 08/27/16 20:18 Last Infusion: 08/27/16 23:16 Dose: 0 mls/hr Potassium Chloride/Sodium Chloride (Kcl 20meq In 0.45 % Nacl) 20 meq in 1,000 mls @ 250 mls/hr IVC .Q4H HOOD Stop: 02/26/17 22:16 Last Infusion: 08/28/16 01:45 Dose: 0 mls/hr Sodium Chloride (0.9 % Sodium Chloride) 1,000 mls @ 500 mls/hr IV TITR HOOD PRN Reason: Protocol Stop: 02/26/17 22:16 Last Admin: 08/28/16 00:39 Dose: 500 mls/hr Sodium Chloride (0.9 % Sodium Chloride) 1,000 mls @ 750 mls/hr IV TITR HOOD PRN Reason: Protocol Stop: 02/26/17 22:16 Last Admin: 08/28/16 00:40 Dose: Potassium Chloride/Sodium Chloride (Kcl 20 Meq In 0.9% Sodium Chloride) 20 meq in 1,000 mls @ 500 mls/hr IVC .Q2H HOOD PRN Reason: Protocol Stop: 02/26/17 22:16 Potassium Chloride/Sodium Chloride (Kcl 20 Meq In 0.9% Sodium Chloride) 20 meq in 1,000 mls @ 750 mls/hr IVC .Q1H20M HOOD PRN Reason: Protocol Stop: 02/26/17 22:16 Insulin Detemir (Levemir) 12 unit 0.15 unit/kg (12 unit) SQ NOW STA Stop: 08/28/16 05:37 Last Admin: 08/28/16 06:30 Dose: 12 unit Insulin Human Lispro (Humalog) 6 units 0.1 unit/kg (6 unit) SQ ONCE ONE Stop: 08/27/16 22:13 Last Admin: 08/28/16 00:39 Dose: Insulin Human Lispro (Humalog) 8 units 0.14 unit/kg (8 unit) SQ ONCE PRN PRN Reason: SEE COMMENTS Stop: 08/27/16 22:13 Insulin Human Lispro (Humalog) 5 units SQ ONCE PRN PRN Reason: SEE COMMENTS Stop: 02/26/17 22:13 Nursing Notes 08/28/16 02:43 Nurse Note by Titi Monique At 0005, advised Dr Richards that the pt meets the sepsis criteria and that she will need a broad spectrum antibiotic. Initialized on 08/28/16 02:43 - END OF NOTE 08/27/16 21:51 Transport Report by Hannah Pantoja Date: 08/27/16 Transport Method: Portable Amoxicillin [From Amoxil] Allergy (Verified 08/27/16 20:09) Rash Resuscitation Status 08/27/16 21:27 ECG 12 lead ECG [ECG] Stat Mode Of Transportation: Portable Reason For Exam: Tachycardia Exam Performed At:: [facility] Oxygen: Mental Status: Fall Risk: Isolation: Nurse Required for Transport: No ___ Yes Limb Restrictions: No ___ Yes Behavioral issue/Risk for Elopement: No ___ Yes Telemetry Room Notification: Destination: MRI XRAY STRESS ULTRASOUND CT DIALYSIS ENDO OTHER: Depart Time: Nurse: Transporter: Arrive Time: Received by: ___ Return Time: Nurse: Transporter: ] Initialized on 08/27/16 21:51 - END OF NOTE Orders 08/27/16 19:58 POC Glucometer Test [POC] Routine 08/27/16 20:00 POC Glucometer Test [POC] Routine 08/27/16 20:17 0.9 % Sodium Chloride 1,000 ml IV BOLUS 08/27/16 20:22 Urinalysis Reflex Cult & Micro [URIN] Stat Comment: Specimen: Send someone from the department to collect 08/27/16 20:39 Complete Blood Count [HEME] Stat Comment: Specimen: Send someone from the department to collect Comprehensive Metabolic Panel Stat Comment: Specimen: Send someone from the department to collect Lactic Acid ([facility] Only) Stat Comment: Specimen: Send someone from the department to collect Troponin I Stat Comment: Specimen: Send someone from the department to collect 08/27/16 21:[address] Stat Comment: Reason for Visit: Hyperosmolar hyperglycemia 08/27/16 21:27 12 lead ECG assessment [RC] NOW ECG 12 lead ECG [ECG] Stat Mode Of Transportation: Portable Reason For Exam: Tachycardia Exam Performed At:: [facility] 08/27/16 21:31 Dextrose 50 % in Water (Syg) [Dextrose 50% (Syg)] 50 ml IVP ONCE PRN 08/27/16 21:45 Insulin Human Regular [HumuLIN R] 100 unit 0.9 % Sodium Chloride 100 ml IVC CONT 08/27/16 22:12 Assess IV fluid Rate [RC] q3h Cardiac monitoring [RC] .ONCE Continuous pulse oximetry [RC] .ONCE Comment: Peripheral IV [RC] CONT Acetaminophen [Tylenol] 650 mg PO Q6HR PRN D5% in 0.45% NACL [D5% And 0.45% Nacl 1000 Ml Bag] 1,000 ml IVC 250 mls/hr D5% in 0.45% NACL w KCl [KCl 20mEq IN D5%-0.45 NACL] 20 meq in 1,000 ml IVC 250 mls/hr Dextrose 50 % in Water (Syg) [Dextrose 50% (Syg)] 25 ml IVP Q15MIN PRN Insulin LISPRO [HumaLOG] 5 units SQ ONCE PRN Insulin LISPRO [HumaLOG] 6 units SQ ONCE ONE Insulin LISPRO [HumaLOG] 8 units SQ ONCE PRN Morphine [Morphine Sulfate] 2 mg IVP Q4HR PRN Naloxone [Narcan] 0.4 mg IVP Q2MIN PRN OxyCODONE Immed Rel [Roxicodone] 5 mg PO Q6HR PRN Potassium Chloride [Potassium Chloride 10 mEq/100mL] 10 meq in 100 ml IVPB Q1H Promethazine [Phenergan] 12.5 mg IVP Q6HR PRN Resuscitation Status: Active [RES] Routine Comment: Resuscitation Status: Full Code DKA/HHS Adjustment as Directed Routine Comment: 08/27/16 22:13 Bed rest [RC] .CONT Physician Instructions: Bed rest w/bathroom privileges [RC] .PRN Placement to Observation Routine Physician Instructions: Reason for Visit: Blood sugars out of control Is VTE Prophylaxis Indicated?: Yes 08/27/16 22:14 Cardiac Monitoring Med/Surg [RC] .CONT Telemetry Reason: ACS/CP Continuous pulse oximetry [RC] CONT Comment: Measure intake and output [RC] QSHIFT Measure weight [RC] DAILY Oxygen via nasal cannula Nasal Cannula 2 lpm Comment: Titrate O2 to main O2 sat greater than: 92% RT has an order or consult [RC] NOW 08/27/16 22:15 0.45 % Sodium Chloride w/KCl [KCl 20mEq in 0.45 % NaCl] 20 meq in 1,000 ml IVC 250 mls/hr 0.9 % Sodium Chloride 1,000 ml IV TITR 0.9 % Sodium Chloride 1,000 ml IV TITR 0.9 % Sodium Chloride w KCl [KCl 20 mEq in 0.9% Sodium Chloride] 20 meq in 1, 000 ml IVC 500 mls/hr 0.9 % Sodium Chloride w KCl [KCl 20 mEq in 0.9% Sodium Chloride] 20 meq in 1, 000 ml IVC 750 mls/hr Up with Assist Daily Comment: Physician Instructions: 08/27/16 22:16 Glucose, blood poc measurement [RC] Q1H 08/27/16 22:21 Culture,Sputum with Gram Stain [] Routine Comment: JOCELINE Source: Sputum Specimen: Pre-Collection Label Specimen Description: Culture,Urine [RM] Stat Comment: JOCELINE Source: Urine,Clean Catch Specimen: Send someone from the department to collect Specimen Description: Drug Screen, Urine [UCHEM] Stat Comment: Specimen: Send someone from the department to collect Lactic Acid ([facility] Only) Q4H Comment: Specimen: Send someone from the department to collect Urinalysis reflex Microscopic [URIN] Stat Comment: Specimen: Send someone from the department to collect 08/27/16 22:30 Apply anti-embolic stockings [RC] .NOW Electrolyte Protocol Orders [RC] AD Incentive Spirometry [RC] .6 TIMES PER HR WHILE AWAKE Respiratory Infection Panel [MOLMIC] Stat Specimen: Send someone from the department to collect Viral Culture,Respiratory [] Stat Comment: [facility] Source: Nasopharyngeal Specimen: Send someone from the department to collect Specimen Description: Calcium Gluconate 1,000 mg D5% in Water [Dextrose 5%] 100 ml IVPB Q6HR Magnesium Sulfate 2 gm D5% in Water [Dextrose 5%] 100 ml IVPB Q6H Phos-NaK [Neutra-Phos] 2 each PO DAILY PRN Potassium Chloride 40 meq PO DAILY PRN Potassium Chloride [Potassium Chloride 10 mEq/100mL] 10 meq in 100 ml IVPB Q1H Potassium Phosphate 44 meq 0.9 % Sodium Chloride 250 ml IVPB Q10H Sodium Phosphate 30 mmol D5% in Water [Dextrose 5%] 100 ml IVPB Q12H 08/27/16 22:37 Basic Metabolic Panel DAILY Comment: Specimen: Send someone from the department to collect Beta-Hydroxybutyric Acid Stat Comment: Specimen: Send someone from the department to collect Complete Blood Count [HEME] DAILY Comment: Specimen: Send someone from the department to collect HCG,Routine Test Stat Comment: Specimen: Send someone from the department to collect Ionized Calcium Q4H Comment: Specimen: Send someone from the department to collect Magnesium Q4H Comment: Specimen: Send someone from the department to collect Osmolality Stat Comment: Specimen: Send someone from the department to collect Phosphorous Q4H Comment: Specimen: Send someone from the department to collect Troponin I Q6H Comment: Specimen: Send someone from the department to collect Venous Blood Gas Q4H Comment: Specimen: Send someone from the department to collect 08/27/16 22:39 Culture,Blood [BC] Stat Comment: JOCELINE Source: Peripheral Venipuncture Quantity: 2 Specimen: Send someone from the department to collect Specimen Description: 08/27/16 Breakfast Diabetic Diet Diet Modifications: 08/28/16 01:09 Albuterol Neb [Proventil Neb] 2.5 mg IH Q2H PRN 08/28/16 01:10 COPD Discharge Checklist [RC] .atdischarge Head of bed elevation [RC] .ONCE Consult to Nurse Navigator [CONS] Routine Comment: 08/28/16 03:00 Insulin Human Regular [HumuLIN R] 100 unit 0.9 % Sodium Chloride 100 ml IVC CONT 08/28/16 04:03 Activated Partial Thrombo Time [COAG] AM 0400 Comment: Specimen: Send someone from the department to collect B-Type Natriuretic Peptide AM 0400 Comment: Specimen: Send someone from the department to collect Basic Metabolic Panel Q4H Comment: Specimen: Send someone from the department to collect C-Peptide AM 0400 Comment: Specimen: Send someone from the department to collect C-Reactive Protein Routine Complete Blood Count [HEME] AM 0400 Comment: Specimen: Send someone from the department to collect Hgb A1C AM 0400 Comment: Specimen: Send someone from the department to collect Ionized Calcium Q4H Comment: Specimen: Send someone from the department to collect Lactic Acid ([facility] Only) Q4H Comment: Specimen: Send someone from the department to collect Lipid Panel AM 0400 Comment: Specimen: Send someone from the department to collect Magnesium Routine Phosphorous Routine Prothrombin Time INR [COAG] AM 0400 Comment: Specimen: Send someone from the department to collect Thyroid Stimulating Hormone Routine Troponin I Q6H Comment: Specimen: Send someone from the department to collect Venous Blood Gas Q4H Comment: Specimen: Send someone from the department to collect 08/28/16 05:00 Ipratropium/Albuterol Neb [Duoneb] 3 ml IH QIDR 08/28/16 05:36 Glucose, blood poc measurement [RC] ACHS Hypoglycemia Treatment Orders [RC] .once Notify provider [RC] once Physician Instructions: Consult to Breaker Machine Tender [CONS] Routine Comment: D5% in Water [Dextrose 5%] 1,000 ml IV CONT Dextrose Gel [Gluctose] 15 gm PO ONCE PRN Dextrose Gel [Gluctose] 30 gm PO ONCE PRN Glucagon, Human Recombinant [GlucaGen] 1 mg IM ONCE PRN Insulin DETEMIR [Levemir] 12 unit SQ NOW STA 08/28/16 06:30 Omeprazole [PriLOSEC] 20 mg PO DAILY@0630 08/28/16 07:30 Insulin LISPRO [HumaLOG] See Protocol SQ TIDAC 08/28/16 09:00 Docusate [Colace] 100 mg PO BID Nicotine Patch [Nicoderm] 21 mg TD DAILY 08/28/16 10:30 Basic Metabolic Panel Q4H Comment: Specimen: Send someone from the department to collect Ionized Calcium Q4H Comment: Specimen: Send someone from the department to collect Magnesium Routine Phosphorous Routine Troponin I Q6H Comment: Specimen: Send someone from the department to collect 08/28/16 21:00 Insulin DETEMIR [Levemir] 22 unit SQ HS Insulin LISPRO [HumaLOG] See Protocol SQ HS 08/28/16 22:15 Up with Assist Daily Comment: Physician Instructions: 08/28/16 22:30 Basic Metabolic Panel DAILY Comment: Specimen: Send someone from the department to collect 08/29/16 22:15 Up with Assist Daily Comment: Physician Instructions: 08/29/16 22:30 Basic Metabolic Panel DAILY Comment: Specimen: Send someone from the department to collect Patient Problems (Last Updated 08/27/16 @ 21:33 by Lalo Vyas MD) Uncontrolled type 2 diabetes mellitus with hyperosmolar nonketotic hyperglycemia (Acute) Vital Signs Temp Pulse Resp BP Pulse Ox 08/28/16 05:51 97.6 F 74 18 113/53 97 08/28/16 04:23 18 99 08/28/16 00:24 98.1 F 84 16 123/82 98 08/27/16 23:55 16 104/81 08/27/16 22:39 89 16 104/81 97 08/27/16 21:39 106 16 149/89 96 08/27/16 20:39 101 16 137/102 97 08/27/16 20:09 125 16 162/96 98 08/27/16 20:04 97.3 F L 125 16 162/96 98 Laboratory Results 08/27/16 08/27/16 08/27/16 Range/Units 19:58 20:00 20:22 WBC (4.3-11.1) K/mcL RBC (3.82-4.97) M/mcL Hgb (11.5-15.4) g/dL Hct (35.3-44.9) % MCV (83.0-100.0) fL MCH (28.0-33.3) pg MCHC (31.6-35.5) g/dL RDW (11.5-14.5) % Plt Count (140-400) K/mcL MPV (9.4-12.4) fL Immature Gran % (0-4) % Seg Neutrophils % % Lymphocytes % % Monocytes % % Eosinophils % % Basophils % % Neutrophils # (1.6-8.9) K/mcL Lymphocytes # (0.6-4.6) K/mcL Monocytes # (0.0-1.3) K/mcL Eosinophils # (0.0-0.6) K/mcL Basophils # (0.0-0.2) K/mcL PT (9.4-12.1) Seconds INR APTT (26.0-36.0) Seconds VBG pH (7.32-7.42) pH Units VBG pCO2 (41-51) mmHg VBG pO2 (25-40) mmHg VBG HCO3 (21-27) mEq/L Sodium (136-145) mEq/L Potassium (3.5-4.5) mEq/L Chloride (98-109) mEq/L Carbon Dioxide (19-29) mEq/L BUN (7-20) mg/dL Creatinine (0.57-1.11) mg/dL Est GFR ( Amer) (> 60) Est GFR (Non-Af Amer) (> 60) BUN/Creatinine Ratio (6-26) Glucose (70-99) mg/dL POC Glucose > 600 H* > 600 H* (58-89) Est Mean Plasma Glucose mg/dl Hemoglobin A1c ( - 5.6) % Serum Osmolality (280-300) mOsm/kg Calculated Osmolality (280-300) Lactic Acid (0.5-2.2) mmol/L Calcium (8.6-10.8) mg/dL Ionized Calcium (1.15-1.35) mmol/L Phosphorus (2.3-4.7) mg/dL Magnesium (1.6-2.6) mg/dL Total Bilirubin (0.2-1.2) mg/dL AST (5-34) Units/L ALT (0-55) Units/L Alkaline Phosphatase (38-126) Units/L Troponin I (0-0.03) ng/mL C-Reactive Protein (Less than 5) mg/L B-Natriuretic Peptide (0-100) pg/mL Serum Total Protein (6.0-8.3) g/dL Albumin (3.5-5.0) g/dL Globulin (2.4-3.5) g/dL Albumin/Globulin Ratio (1.1-2.2) Triglycerides (< 150) mg/dL Cholesterol (< 200) mg/dL LDL Cholesterol, Calc (0-99) mg/dL VLDL Cholesterol, Calc (< 31) mg/dL HDL Cholesterol (40-59) mg/dL Cholesterol/HDL Ratio (0-4.9) Beta-Hydroxybutyric Acd (0.02-0.27) mmol/L TSH (0.350-4.840) mcIU/mL Serum , Qual (Negative) Urine Color Yellow (Yellow) Urine Clarity Clear (Clear) Urine pH 6.5 (5.0-8.0) pH Units Ur Specific Cameron > 1.030 H (1.010-1.025) Urine Protein Negative (Neg-Trace) mg/dL Urine Glucose (UA) >=1000 H (Normal) mg/dL Urine Ketones Negative (Negative) mg/dL Urine Blood Negative (Negative) Urine Nitrite Negative (Negative) Urine Bilirubin Negative (Negative) Urine Urobilinogen Normal (Normal) mg/dL Ur Leukocyte Esterase Negative (Negative) Ur Culture Indicated? NO (NO) Urine Opiates Screen (Hrwevj=795) ng/mL Ur Barbiturates Screen (Juvofy=058) ng/mL Ur Phencyclidine Scrn (Cutoff=25) ng/mL Ur Amphetamines Screen (Fvkkqg=2087) ng/mL U Benzodiazepines Scrn (Msfjhr=641) ng/mL Urine Cocaine Screen (Cutoff= 300) ng/mL U Marijuana (THC) Screen (Cutoff = 50) ng/mL Chlamy pneumoniae PCR (Not Detect) Adenovirus (PCR) (Not Detect) B. pertussis DNA (PCR) (Not Detect) Coronavirus OC43 (PCR) (Not Detect) Coronavirus HKU1 (PCR) (Not Detect) Coronavirus 229E (PCR) (Not Detect) Coronavirus NL63 (PCR) (Not Detect) Human Metapneumovirus (Not Detect) Influenza A (H1) PCR (Not Detect) Influ A (H1N1/09) PCR (Not Detect) Influenza A (H3) PCR (Not Detect) Influenza A Untype (PCR) (Not Detect) Influenza Type B (PCR) (Not Detect) M.pneumoniae DNA (PCR) (Not Detect) Parainfluenza 1 (PCR) (Not Detect) Parainfluenza 2 (PCR) (Not Detect) Parainfluenza 3 (PCR) (Not Detect) Parainfluenza 4 (PCR) (Not Detect) RSV (PCR) (Not Detect) Entero/Rhino (PCR) (Not Detect) 08/27/16 08/27/16 08/27/16 Range/Units 20:39 20:39 20:39 WBC 14.0 H (4.3-11.1) K/mcL RBC 5.00 H (3.82-4.97) M/mcL Hgb 14.7 (11.5-15.4) g/dL Hct 42.2 (35.3-44.9) % MCV 84.4 (83.0-100.0) fL MCH 29.4 (28.0-33.3) pg MCHC 34.8 (31.6-35.5) g/dL RDW 13.0 (11.5-14.5) % Plt Count 218 (140-400) K/mcL MPV 12.2 (9.4-12.4) fL Immature Gran % 0.6 (0-4) % Seg Neutrophils % 76.7 % Lymphocytes % 14.8 % Monocytes % 4.5 % Eosinophils % 3.0 % Basophils % 0.4 % Neutrophils # 10.8 H (1.6-8.9) K/mcL Lymphocytes # 2.1 (0.6-4.6) K/mcL Monocytes # 0.6 (0.0-1.3) K/mcL Eosinophils # 0.4 (0.0-0.6) K/mcL Basophils # 0.1 (0.0-0.2) K/mcL PT (9.4-12.1) Seconds INR APTT (26.0-36.0) Seconds VBG pH (7.32-7.42) pH Units VBG pCO2 (41-51) mmHg VBG pO2 (25-40) mmHg VBG HCO3 (21-27) mEq/L Sodium 132 L (136-145) mEq/L Potassium 3.0 L (3.5-4.5) mEq/L Chloride 95 L (98-109) mEq/L Carbon Dioxide 24 (19-29) mEq/L BUN 23 H (7-20) mg/dL Creatinine 1.53 H (0.57-1.11) mg/dL Est GFR ( Amer) 43 L (> 60) Est GFR (Non-Af Amer) 36 L (> 60) BUN/Creatinine Ratio 15 (6-26) Glucose 731 H* (70-99) mg/dL POC Glucose (58-89) Est Mean Plasma Glucose mg/dl Hemoglobin A1c ( - 5.6) % Serum Osmolality (280-300) mOsm/kg Calculated Osmolality 313 H (280-300) Lactic Acid 3.2 H (0.5-2.2) mmol/L Calcium 9.1 (8.6-10.8) mg/dL Ionized Calcium (1.15-1.35) mmol/L Phosphorus (2.3-4.7) mg/dL Magnesium (1.6-2.6) mg/dL Total Bilirubin 0.3 (0.2-1.2) mg/dL AST 35 H (5-34) Units/L ALT 53 (0-55) Units/L Alkaline Phosphatase 100 (38-126) Units/L Troponin I (0-0.03) ng/mL C-Reactive Protein (Less than 5) mg/L B-Natriuretic Peptide (0-100) pg/mL Serum Total Protein 8.0 (6.0-8.3) g/dL Albumin 3.8 (3.5-5.0) g/dL Globulin 4.2 H (2.4-3.5) g/dL Albumin/Globulin Ratio 0.9 L (1.1-2.2) Triglycerides (< 150) mg/dL Cholesterol (< 200) mg/dL LDL Cholesterol, Calc (0-99) mg/dL VLDL Cholesterol, Calc (< 31) mg/dL HDL Cholesterol (40-59) mg/dL Cholesterol/HDL Ratio (0-4.9) Beta-Hydroxybutyric Acd (0.02-0.27) mmol/L TSH (0.350-4.840) mcIU/mL Serum , Qual (Negative) Urine Color (Yellow) Urine Clarity (Clear) Urine pH (5.0-8.0) pH Units Ur Specific Cameron (1.010-1.025) Urine Protein (Neg-Trace) mg/dL Urine Glucose (UA) (Normal) mg/dL Urine Ketones (Negative) mg/dL Urine Blood (Negative) Urine Nitrite (Negative) Urine Bilirubin (Negative) Urine Urobilinogen (Normal) mg/dL Ur Leukocyte Esterase (Negative) Ur Culture Indicated? (NO) Urine Opiates Screen (Eiqrji=719) ng/mL Ur Barbiturates Screen (Dlldgz=737) ng/mL Ur Phencyclidine Scrn (Cutoff=25) ng/mL Ur Amphetamines Screen (Kkgsgv=2399) ng/mL U Benzodiazepines Scrn (Aocynf=067) ng/mL Urine Cocaine Screen (Cutoff= 300) ng/mL U Marijuana (THC) Screen (Cutoff = 50) ng/mL Chlamy pneumoniae PCR (Not Detect) Adenovirus (PCR) (Not Detect) B. pertussis DNA (PCR) (Not Detect) Coronavirus OC43 (PCR) (Not Detect) Coronavirus HKU1 (PCR) (Not Detect) Coronavirus 229E (PCR) (Not Detect) Coronavirus NL63 (PCR) (Not Detect) Human Metapneumovirus (Not Detect) Influenza A (H1) PCR (Not Detect) Influ A (H1N1/09) PCR (Not Detect) Influenza A (H3) PCR (Not Detect) Influenza A Untype (PCR) (Not Detect) Influenza Type B (PCR) (Not Detect) M.pneumoniae DNA (PCR) (Not Detect) Parainfluenza 1 (PCR) (Not Detect) Parainfluenza 2 (PCR) (Not Detect) Parainfluenza 3 (PCR) (Not Detect) Parainfluenza 4 (PCR) (Not Detect) RSV (PCR) (Not Detect) Entero/Rhino (PCR) (Not Detect) 08/27/16 08/27/16 08/27/16 Range/Units 20:39 22:37 22:37 WBC (4.3-11.1) K/mcL RBC (3.82-4.97) M/mcL Hgb (11.5-15.4) g/dL Hct (35.3-44.9) % MCV (83.0-100.0) fL MCH (28.0-33.3) pg MCHC (31.6-35.5) g/dL RDW (11.5-14.5) % Plt Count (140-400) K/mcL MPV (9.4-12.4) fL Immature Gran % (0-4) % Seg Neutrophils % % Lymphocytes % % Monocytes % % Eosinophils % % Basophils % % Neutrophils # (1.6-8.9) K/mcL Lymphocytes # (0.6-4.6) K/mcL Monocytes # (0.0-1.3) K/mcL Eosinophils # (0.0-0.6) K/mcL Basophils # (0.0-0.2) K/mcL PT (9.4-12.1) Seconds INR APTT (26.0-36.0) Seconds VBG pH 7.43 H (7.32-7.42) pH Units VBG pCO2 44 (41-51) mmHg VBG pO2 45 H (25-40) mmHg VBG HCO3 29.2 H (21-27) mEq/L Sodium (136-145) mEq/L Potassium (3.5-4.5) mEq/L Chloride (98-109) mEq/L Carbon Dioxide (19-29) mEq/L BUN (7-20) mg/dL Creatinine (0.57-1.11) mg/dL Est GFR ( Amer) (> 60) Est GFR (Non-Af Amer) (> 60) BUN/Creatinine Ratio (6-26) Glucose (70-99) mg/dL POC Glucose (58-89) Est Mean Plasma Glucose mg/dl Hemoglobin A1c ( - 5.6) % Serum Osmolality (280-300) mOsm/kg Calculated Osmolality (280-300) Lactic Acid (0.5-2.2) mmol/L Calcium (8.6-10.8) mg/dL Ionized Calcium (1.15-1.35) mmol/L Phosphorus 1.8 L (2.3-4.7) mg/dL Magnesium 1.5 L (1.6-2.6) mg/dL Total Bilirubin (0.2-1.2) mg/dL AST (5-34) Units/L ALT (0-55) Units/L Alkaline Phosphatase (38-126) Units/L Troponin I 0.00 (0-0.03) ng/mL C-Reactive Protein (Less than 5) mg/L B-Natriuretic Peptide (0-100) pg/mL Serum Total Protein (6.0-8.3) g/dL Albumin (3.5-5.0) g/dL Globulin (2.4-3.5) g/dL Albumin/Globulin Ratio (1.1-2.2) Triglycerides (< 150) mg/dL Cholesterol (< 200) mg/dL LDL Cholesterol, Calc (0-99) mg/dL VLDL Cholesterol, Calc (< 31) mg/dL HDL Cholesterol (40-59) mg/dL Cholesterol/HDL Ratio (0-4.9) Beta-Hydroxybutyric Acd (0.02-0.27) mmol/L TSH (0.350-4.840) mcIU/mL Serum , Qual (Negative) Urine Color (Yellow) Urine Clarity (Clear) Urine pH (5.0-8.0) pH Units Ur Specific Cameron (1.010-1.025) Urine Protein (Neg-Trace) mg/dL Urine Glucose (UA) (Normal) mg/dL Urine Ketones (Negative) mg/dL Urine Blood (Negative) Urine Nitrite (Negative) Urine Bilirubin (Negative) Urine Urobilinogen (Normal) mg/dL Ur Leukocyte Esterase (Negative) Ur Culture Indicated? (NO) Urine Opiates Screen (Bptpai=634) ng/mL Ur Barbiturates Screen (Tydysa=900) ng/mL Ur Phencyclidine Scrn (Cutoff=25) ng/mL Ur Amphetamines Screen (Zypdra=2434) ng/mL U Benzodiazepines Scrn (Wpfqiw=224) ng/mL Urine Cocaine Screen (Cutoff= 300) ng/mL U Marijuana (THC) Screen (Cutoff = 50) ng/mL Chlamy pneumoniae PCR (Not Detect) Adenovirus (PCR) (Not Detect) B. pertussis DNA (PCR) (Not Detect) Coronavirus OC43 (PCR) (Not Detect) Coronavirus HKU1 (PCR) (Not Detect) Coronavirus 229E (PCR) (Not Detect) Coronavirus NL63 (PCR) (Not Detect) Human Metapneumovirus (Not Detect) Influenza A (H1) PCR (Not Detect) Influ A (H1N1/09) PCR (Not Detect) Influenza A (H3) PCR (Not Detect) Influenza A Untype (PCR) (Not Detect) Influenza Type B (PCR) (Not Detect) M.pneumoniae DNA (PCR) (Not Detect) Parainfluenza 1 (PCR) (Not Detect) Parainfluenza 2 (PCR) (Not Detect) Parainfluenza 3 (PCR) (Not Detect) Parainfluenza 4 (PCR) (Not Detect) RSV (PCR) (Not Detect) Entero/Rhino (PCR) (Not Detect) 08/27/16 08/27/16 08/27/16 Range/Units 22:37 22:37 22:37 WBC (4.3-11.1) K/mcL RBC (3.82-4.97) M/mcL Hgb (11.5-15.4) g/dL Hct (35.3-44.9) % MCV (83.0-100.0) fL MCH (28.0-33.3) pg MCHC (31.6-35.5) g/dL RDW (11.5-14.5) % Plt Count (140-400) K/mcL MPV (9.4-12.4) fL Immature Gran % (0-4) % Seg Neutrophils % % Lymphocytes % % Monocytes % % Eosinophils % % Basophils % % Neutrophils # (1.6-8.9) K/mcL Lymphocytes # (0.6-4.6) K/mcL Monocytes # (0.0-1.3) K/mcL Eosinophils # (0.0-0.6) K/mcL Basophils # (0.0-0.2) K/mcL PT (9.4-12.1) Seconds INR APTT (26.0-36.0) Seconds VBG pH (7.32-7.42) pH Units VBG pCO2 (41-51) mmHg VBG pO2 (25-40) mmHg VBG HCO3 (21-27) mEq/L Sodium (136-145) mEq/L Potassium (3.5-4.5) mEq/L Chloride (98-109) mEq/L Carbon Dioxide (19-29) mEq/L BUN (7-20) mg/dL Creatinine (0.57-1.11) mg/dL Est GFR ( Amer) (> 60) Est GFR (Non-Af Amer) (> 60) BUN/Creatinine Ratio (6-26) Glucose (70-99) mg/dL POC Glucose (58-89) Est Mean Plasma Glucose mg/dl Hemoglobin A1c ( - 5.6) % Serum Osmolality 312 H (280-300) mOsm/kg Calculated Osmolality (280-300) Lactic Acid (0.5-2.2) mmol/L Calcium (8.6-10.8) mg/dL Ionized Calcium (1.15-1.35) mmol/L Phosphorus (2.3-4.7) mg/dL Magnesium (1.6-2.6) mg/dL Total Bilirubin (0.2-1.2) mg/dL AST (5-34) Units/L ALT (0-55) Units/L Alkaline Phosphatase (38-126) Units/L Troponin I 0.01 (0-0.03) ng/mL C-Reactive Protein (Less than 5) mg/L B-Natriuretic Peptide (0-100) pg/mL Serum Total Protein (6.0-8.3) g/dL Albumin (3.5-5.0) g/dL Globulin (2.4-3.5) g/dL Albumin/Globulin Ratio (1.1-2.2) Triglycerides (< 150) mg/dL Cholesterol (< 200) mg/dL LDL Cholesterol, Calc (0-99) mg/dL VLDL Cholesterol, Calc (< 31) mg/dL HDL Cholesterol (40-59) mg/dL Cholesterol/HDL Ratio (0-4.9) Beta-Hydroxybutyric Acd 0.12 (0.02-0.27) mmol/L TSH (0.350-4.840) mcIU/mL Serum , Qual Negative (Negative) Urine Color (Yellow) Urine Clarity (Clear) Urine pH (5.0-8.0) pH Units Ur Specific Cameron (1.010-1.025) Urine Protein (Neg-Trace) mg/dL Urine Glucose (UA) (Normal) mg/dL Urine Ketones (Negative) mg/dL Urine Blood (Negative) Urine Nitrite (Negative) Urine Bilirubin (Negative) Urine Urobilinogen (Normal) mg/dL Ur Leukocyte Esterase (Negative) Ur Culture Indicated? (NO) Urine Opiates Screen (Wwglrr=480) ng/mL Ur Barbiturates Screen (Gdrqmc=033) ng/mL Ur Phencyclidine Scrn (Cutoff=25) ng/mL Ur Amphetamines Screen (Rgxdyh=6360) ng/mL U Benzodiazepines Scrn (Upruhq=855) ng/mL Urine Cocaine Screen (Cutoff= 300) ng/mL U Marijuana (THC) Screen (Cutoff = 50) ng/mL Chlamy pneumoniae PCR (Not Detect) Adenovirus (PCR) (Not Detect) B. pertussis DNA (PCR) (Not Detect) Coronavirus OC43 (PCR) (Not Detect) Coronavirus HKU1 (PCR) (Not Detect) Coronavirus 229E (PCR) (Not Detect) Coronavirus NL63 (PCR) (Not Detect) Human Metapneumovirus (Not Detect) Influenza A (H1) PCR (Not Detect) Influ A (H1N1/09) PCR (Not Detect) Influenza A (H3) PCR (Not Detect) Influenza A Untype (PCR) (Not Detect) Influenza Type B (PCR) (Not Detect) M.pneumoniae DNA (PCR) (Not Detect) Parainfluenza 1 (PCR) (Not Detect) Parainfluenza 2 (PCR) (Not Detect) Parainfluenza 3 (PCR) (Not Detect) Parainfluenza 4 (PCR) (Not Detect) RSV (PCR) (Not Detect) Entero/Rhino (PCR) (Not Detect) 08/27/16 08/27/16 08/28/16 Range/Units 22:37 22:37 00:58 WBC 14.2 H (4.3-11.1) K/mcL RBC 4.62 (3.82-4.97) M/mcL Hgb 13.8 (11.5-15.4) g/dL Hct 39.2 (35.3-44.9) % MCV 84.8 (83.0-100.0) fL MCH 29.9 (28.0-33.3) pg MCHC 35.2 (31.6-35.5) g/dL RDW 13.0 (11.5-14.5) % Plt Count 180 (140-400) K/mcL MPV 12.0 (9.4-12.4) fL Immature Gran % 0.6 (0-4) % Seg Neutrophils % 73.1 % Lymphocytes % 18.8 % Monocytes % 4.4 % Eosinophils % 2.7 % Basophils % 0.4 % Neutrophils # 10.4 H (1.6-8.9) K/mcL Lymphocytes # 2.7 (0.6-4.6) K/mcL Monocytes # 0.6 (0.0-1.3) K/mcL Eosinophils # 0.4 (0.0-0.6) K/mcL Basophils # 0.1 (0.0-0.2) K/mcL PT (9.4-12.1) Seconds INR APTT (26.0-36.0) Seconds VBG pH (7.32-7.42) pH Units VBG pCO2 (41-51) mmHg VBG pO2 (25-40) mmHg VBG HCO3 (21-27) mEq/L Sodium 133 L (136-145) mEq/L Potassium 3.1 L (3.5-4.5) mEq/L Chloride 99 (98-109) mEq/L Carbon Dioxide 24 (19-29) mEq/L BUN 21 H (7-20) mg/dL Creatinine 1.15 H (0.57-1.11) mg/dL Est GFR ( Amer) > 60 (> 60) Est GFR (Non-Af Amer) 50 L (> 60) BUN/Creatinine Ratio 18 (6-26) Glucose 489 H (70-99) mg/dL POC Glucose (58-89) Est Mean Plasma Glucose mg/dl Hemoglobin A1c ( - 5.6) % Serum Osmolality (280-300) mOsm/kg Calculated Osmolality 301 H (280-300) Lactic Acid 2.2 (0.5-2.2) mmol/L Calcium 9.0 (8.6-10.8) mg/dL Ionized Calcium 1.12 L (1.15-1.35) mmol/L Phosphorus (2.3-4.7) mg/dL Magnesium (1.6-2.6) mg/dL Total Bilirubin (0.2-1.2) mg/dL AST (5-34) Units/L ALT (0-55) Units/L Alkaline Phosphatase (38-126) Units/L Troponin I (0-0.03) ng/mL C-Reactive Protein (Less than 5) mg/L B-Natriuretic Peptide (0-100) pg/mL Serum Total Protein (6.0-8.3) g/dL Albumin (3.5-5.0) g/dL Globulin (2.4-3.5) g/dL Albumin/Globulin Ratio (1.1-2.2) Triglycerides (< 150) mg/dL Cholesterol (< 200) mg/dL LDL Cholesterol, Calc (0-99) mg/dL VLDL Cholesterol, Calc (< 31) mg/dL HDL Cholesterol (40-59) mg/dL Cholesterol/HDL Ratio (0-4.9) Beta-Hydroxybutyric Acd (0.02-0.27) mmol/L TSH (0.350-4.840) mcIU/mL Serum , Qual (Negative) Urine Color (Yellow) Urine Clarity (Clear) Urine pH (5.0-8.0) pH Units Ur Specific Cameron (1.010-1.025) Urine Protein (Neg-Trace) mg/dL Urine Glucose (UA) (Normal) mg/dL Urine Ketones (Negative) mg/dL Urine Blood (Negative) Urine Nitrite (Negative) Urine Bilirubin (Negative) Urine Urobilinogen (Normal) mg/dL Ur Leukocyte Esterase (Negative) Ur Culture Indicated? (NO) Urine Opiates Screen (Mrbfby=847) ng/mL Ur Barbiturates Screen (Kuiqmw=345) ng/mL Ur Phencyclidine Scrn (Cutoff=25) ng/mL Ur Amphetamines Screen (Ifhmth=1747) ng/mL U Benzodiazepines Scrn (Rrdfqu=839) ng/mL Urine Cocaine Screen (Cutoff= 300) ng/mL U Marijuana (THC) Screen (Cutoff = 50) ng/mL Chlamy pneumoniae PCR (Not Detect) Adenovirus (PCR) (Not Detect) B. pertussis DNA (PCR) (Not Detect) Coronavirus OC43 (PCR) (Not Detect) Coronavirus HKU1 (PCR) (Not Detect) Coronavirus 229E (PCR) (Not Detect) Coronavirus NL63 (PCR) (Not Detect) Human Metapneumovirus (Not Detect) Influenza A (H1) PCR (Not Detect) Influ A (H1N1/09) PCR (Not Detect) Influenza A (H3) PCR (Not Detect) Influenza A Untype (PCR) (Not Detect) Influenza Type B (PCR) (Not Detect) M.pneumoniae DNA (PCR) (Not Detect) Parainfluenza 1 (PCR) (Not Detect) Parainfluenza 2 (PCR) (Not Detect) Parainfluenza 3 (PCR) (Not Detect) Parainfluenza 4 (PCR) (Not Detect) RSV (PCR) (Not Detect) Entero/Rhino (PCR) (Not Detect) 08/28/16 08/28/16 08/28/16 Range/Units 01:10 02:30 02:30 WBC (4.3-11.1) K/mcL RBC (3.82-4.97) M/mcL Hgb (11.5-15.4) g/dL Hct (35.3-44.9) % MCV (83.0-100.0) fL MCH (28.0-33.3) pg MCHC (31.6-35.5) g/dL RDW (11.5-14.5) % Plt Count (140-400) K/mcL MPV (9.4-12.4) fL Immature Gran % (0-4) % Seg Neutrophils % % Lymphocytes % % Monocytes % % Eosinophils % % Basophils % % Neutrophils # (1.6-8.9) K/mcL Lymphocytes # (0.6-4.6) K/mcL Monocytes # (0.0-1.3) K/mcL Eosinophils # (0.0-0.6) K/mcL Basophils # (0.0-0.2) K/mcL PT (9.4-12.1) Seconds INR APTT (26.0-36.0) Seconds VBG pH (7.32-7.42) pH Units VBG pCO2 (41-51) mmHg VBG pO2 (25-40) mmHg VBG HCO3 (21-27) mEq/L Sodium (136-145) mEq/L Potassium (3.5-4.5) mEq/L Chloride (98-109) mEq/L Carbon Dioxide (19-29) mEq/L BUN (7-20) mg/dL Creatinine (0.57-1.11) mg/dL Est GFR ( Amer) (> 60) Est GFR (Non-Af Amer) (> 60) BUN/Creatinine Ratio (6-26) Glucose (70-99) mg/dL POC Glucose (58-89) Est Mean Plasma Glucose mg/dl Hemoglobin A1c ( - 5.6) % Serum Osmolality (280-300) mOsm/kg Calculated Osmolality (280-300) Lactic Acid (0.5-2.2) mmol/L Calcium (8.6-10.8) mg/dL Ionized Calcium (1.15-1.35) mmol/L Phosphorus (2.3-4.7) mg/dL Magnesium (1.6-2.6) mg/dL Total Bilirubin (0.2-1.2) mg/dL AST (5-34) Units/L ALT (0-55) Units/L Alkaline Phosphatase (38-126) Units/L Troponin I (0-0.03) ng/mL C-Reactive Protein (Less than 5) mg/L B-Natriuretic Peptide (0-100) pg/mL Serum Total Protein (6.0-8.3) g/dL Albumin (3.5-5.0) g/dL Globulin (2.4-3.5) g/dL Albumin/Globulin Ratio (1.1-2.2) Triglycerides (< 150) mg/dL Cholesterol (< 200) mg/dL LDL Cholesterol, Calc (0-99) mg/dL VLDL Cholesterol, Calc (< 31) mg/dL HDL Cholesterol (40-59) mg/dL Cholesterol/HDL Ratio (0-4.9) Beta-Hydroxybutyric Acd (0.02-0.27) mmol/L TSH (0.350-4.840) mcIU/mL Serum , Qual (Negative) Urine Color Yellow (Yellow) Urine Clarity Clear (Clear) Urine pH 6.0 (5.0-8.0) pH Units Ur Specific Cameron 1.025 (1.010-1.025) Urine Protein Negative (Neg-Trace) mg/dL Urine Glucose (UA) >=1000 H (Normal) mg/dL Urine Ketones Negative (Negative) mg/dL Urine Blood Negative (Negative) Urine Nitrite Negative (Negative) Urine Bilirubin Negative (Negative) Urine Urobilinogen Normal (Normal) mg/dL Ur Leukocyte Esterase Negative (Negative) Ur Culture Indicated? (NO) Urine Opiates Screen Negative (Nynhmk=914) ng/mL Ur Barbiturates Screen Negative (Thrjks=225) ng/mL Ur Phencyclidine Scrn Negative (Cutoff=25) ng/mL Ur Amphetamines Screen Negative (Oxdbwb=6420) ng/mL U Benzodiazepines Scrn Negative (Lbuzsx=632) ng/mL Urine Cocaine Screen Negative (Cutoff= 300) ng/mL U Marijuana (THC) Screen Negative (Cutoff = 50) ng/mL Chlamy pneumoniae PCR Not Detected (Not Detect) Adenovirus (PCR) Not Detected (Not Detect) B. pertussis DNA (PCR) Not Detected (Not Detect) Coronavirus OC43 (PCR) Not Detected (Not Detect) Coronavirus HKU1 (PCR) Not Detected (Not Detect) Coronavirus 229E (PCR) Not Detected (Not Detect) Coronavirus NL63 (PCR) Not Detected (Not Detect) Human Metapneumovirus Not Detected (Not Detect) Influenza A (H1) PCR Not Detected (Not Detect) Influ A (H1N1/09) PCR Not Detected (Not Detect) Influenza A (H3) PCR Not Detected (Not Detect) Influenza A Untype (PCR) Not Detected (Not Detect) Influenza Type B (PCR) Not Detected (Not Detect) M.pneumoniae DNA (PCR) Not Detected (Not Detect) Parainfluenza 1 (PCR) Not Detected (Not Detect) Parainfluenza 2 (PCR) Not Detected (Not Detect) Parainfluenza 3 (PCR) Not Detected (Not Detect) Parainfluenza 4 (PCR) Not Detected (Not Detect) RSV (PCR) Not Detected (Not Detect) Entero/Rhino (PCR) Not Detected (Not Detect) 08/28/16 08/28/16 08/28/16 Range/Units 04:03 04:03 04:03 WBC (4.3-11.1) K/mcL RBC (3.82-4.97) M/mcL Hgb (11.5-15.4) g/dL Hct (35.3-44.9) % MCV (83.0-100.0) fL MCH (28.0-33.3) pg MCHC (31.6-35.5) g/dL RDW (11.5-14.5) % Plt Count (140-400) K/mcL MPV (9.4-12.4) fL Immature Gran % (0-4) % Seg Neutrophils % % Lymphocytes % % Monocytes % % Eosinophils % % Basophils % % Neutrophils # (1.6-8.9) K/mcL Lymphocytes # (0.6-4.6) K/mcL Monocytes # (0.0-1.3) K/mcL Eosinophils # (0.0-0.6) K/mcL Basophils # (0.0-0.2) K/mcL PT 11.3 (9.4-12.1) Seconds INR 1.0 APTT 24.9 L (26.0-36.0) Seconds VBG pH 7.43 H (7.32-7.42) pH Units VBG pCO2 45 (41-51) mmHg VBG pO2 74 H (25-40) mmHg VBG HCO3 29.9 H (21-27) mEq/L Sodium (136-145) mEq/L Potassium (3.5-4.5) mEq/L Chloride (98-109) mEq/L Carbon Dioxide (19-29) mEq/L BUN (7-20) mg/dL Creatinine (0.57-1.11) mg/dL Est GFR ( Amer) (> 60) Est GFR (Non-Af Amer) (> 60) BUN/Creatinine Ratio (6-26) Glucose (70-99) mg/dL POC Glucose (58-89) Est Mean Plasma Glucose 246 mg/dl Hemoglobin A1c 10.2 H ( - 5.6) % Serum Osmolality (280-300) mOsm/kg Calculated Osmolality (280-300) Lactic Acid (0.5-2.2) mmol/L Calcium (8.6-10.8) mg/dL Ionized Calcium (1.15-1.35) mmol/L Phosphorus (2.3-4.7) mg/dL Magnesium (1.6-2.6) mg/dL Total Bilirubin (0.2-1.2) mg/dL AST (5-34) Units/L ALT (0-55) Units/L Alkaline Phosphatase (38-126) Units/L Troponin I (0-0.03) ng/mL C-Reactive Protein (Less than 5) mg/L B-Natriuretic Peptide (0-100) pg/mL Serum Total Protein (6.0-8.3) g/dL Albumin (3.5-5.0) g/dL Globulin (2.4-3.5) g/dL Albumin/Globulin Ratio (1.1-2.2) Triglycerides (< 150) mg/dL Cholesterol (< 200) mg/dL LDL Cholesterol, Calc (0-99) mg/dL VLDL Cholesterol, Calc (< 31) mg/dL HDL Cholesterol (40-59) mg/dL Cholesterol/HDL Ratio (0-4.9) Beta-Hydroxybutyric Acd (0.02-0.27) mmol/L TSH (0.350-4.840) mcIU/mL Serum , Qual (Negative) Urine Color (Yellow) Urine Clarity (Clear) Urine pH (5.0-8.0) pH Units Ur Specific Cameron (1.010-1.025) Urine Protein (Neg-Trace) mg/dL Urine Glucose (UA) (Normal) mg/dL Urine Ketones (Negative) mg/dL Urine Blood (Negative) Urine Nitrite (Negative) Urine Bilirubin (Negative) Urine Urobilinogen (Normal) mg/dL Ur Leukocyte Esterase (Negative) Ur Culture Indicated? (NO) Urine Opiates Screen (Gvpuax=568) ng/mL Ur Barbiturates Screen (Cwftiq=098) ng/mL Ur Phencyclidine Scrn (Cutoff=25) ng/mL Ur Amphetamines Screen (Vpzwvk=2075) ng/mL U Benzodiazepines Scrn (Jaixce=107) ng/mL Urine Cocaine Screen (Cutoff= 300) ng/mL U Marijuana (THC) Screen (Cutoff = 50) ng/mL Chlamy pneumoniae PCR (Not Detect) Adenovirus (PCR) (Not Detect) B. pertussis DNA (PCR) (Not Detect) Coronavirus OC43 (PCR) (Not Detect) Coronavirus HKU1 (PCR) (Not Detect) Coronavirus 229E (PCR) (Not Detect) Coronavirus NL63 (PCR) (Not Detect) Human Metapneumovirus (Not Detect) Influenza A (H1) PCR (Not Detect) Influ A (H1N1/09) PCR (Not Detect) Influenza A (H3) PCR (Not Detect) Influenza A Untype (PCR) (Not Detect) Influenza Type B (PCR) (Not Detect) M.pneumoniae DNA (PCR) (Not Detect) Parainfluenza 1 (PCR) (Not Detect) Parainfluenza 2 (PCR) (Not Detect) Parainfluenza 3 (PCR) (Not Detect) Parainfluenza 4 (PCR) (Not Detect) RSV (PCR) (Not Detect) Entero/Rhino (PCR) (Not Detect) 08/28/16 08/28/16 08/28/16 Range/Units 04:03 04:03 04:03 WBC (4.3-11.1) K/mcL RBC (3.82-4.97) M/mcL Hgb (11.5-15.4) g/dL Hct (35.3-44.9) % MCV (83.0-100.0) fL MCH (28.0-33.3) pg MCHC (31.6-35.5) g/dL RDW (11.5-14.5) % Plt Count (140-400) K/mcL MPV (9.4-12.4) fL Immature Gran % (0-4) % Seg Neutrophils % % Lymphocytes % % Monocytes % % Eosinophils % % Basophils % % Neutrophils # (1.6-8.9) K/mcL Lymphocytes # (0.6-4.6) K/mcL Monocytes # (0.0-1.3) K/mcL Eosinophils # (0.0-0.6) K/mcL Basophils # (0.0-0.2) K/mcL PT (9.4-12.1) Seconds INR APTT (26.0-36.0) Seconds VBG pH (7.32-7.42) pH Units VBG pCO2 (41-51) mmHg VBG pO2 (25-40) mmHg VBG HCO3 (21-27) mEq/L Sodium (136-145) mEq/L Potassium (3.5-4.5) mEq/L Chloride (98-109) mEq/L Carbon Dioxide (19-29) mEq/L BUN (7-20) mg/dL Creatinine (0.57-1.11) mg/dL Est GFR ( Amer) (> 60) Est GFR (Non-Af Amer) (> 60) BUN/Creatinine Ratio (6-26) Glucose (70-99) mg/dL POC Glucose (58-89) Est Mean Plasma Glucose mg/dl Hemoglobin A1c ( - 5.6) % Serum Osmolality (280-300) mOsm/kg Calculated Osmolality (280-300) Lactic Acid (0.5-2.2) mmol/L Calcium (8.6-10.8) mg/dL Ionized Calcium (1.15-1.35) mmol/L Phosphorus (2.3-4.7) mg/dL Magnesium (1.6-2.6) mg/dL Total Bilirubin (0.2-1.2) mg/dL AST (5-34) Units/L ALT (0-55) Units/L Alkaline Phosphatase (38-126) Units/L Troponin I 0.01 (0-0.03) ng/mL C-Reactive Protein 15 H (Less than 5) mg/L B-Natriuretic Peptide < 10 (0-100) pg/mL Serum Total Protein (6.0-8.3) g/dL Albumin (3.5-5.0) g/dL Globulin (2.4-3.5) g/dL Albumin/Globulin Ratio (1.1-2.2) Triglycerides 233 H (< 150) mg/dL Cholesterol 206 H (< 200) mg/dL LDL Cholesterol, Calc 130 H (0-99) mg/dL VLDL Cholesterol, Calc 47 H (< 31) mg/dL HDL Cholesterol 29 L (40-59) mg/dL Cholesterol/HDL Ratio 7.1 H (0-4.9) Beta-Hydroxybutyric Acd (0.02-0.27) mmol/L TSH 3.460 (0.350-4.840) mcIU/mL Serum , Qual (Negative) Urine Color (Yellow) Urine Clarity (Clear) Urine pH (5.0-8.0) pH Units Ur Specific Cameron (1.010-1.025) Urine Protein (Neg-Trace) mg/dL Urine Glucose (UA) (Normal) mg/dL Urine Ketones (Negative) mg/dL Urine Blood (Negative) Urine Nitrite (Negative) Urine Bilirubin (Negative) Urine Urobilinogen (Normal) mg/dL Ur Leukocyte Esterase (Negative) Ur Culture Indicated? (NO) Urine Opiates Screen (Bekubn=659) ng/mL Ur Barbiturates Screen (Vwfmrd=534) ng/mL Ur Phencyclidine Scrn (Cutoff=25) ng/mL Ur Amphetamines Screen (Bnegkx=1160) ng/mL U Benzodiazepines Scrn (Lzbfxs=479) ng/mL Urine Cocaine Screen (Cutoff= 300) ng/mL U Marijuana (THC) Screen (Cutoff = 50) ng/mL Chlamy pneumoniae PCR (Not Detect) Adenovirus (PCR) (Not Detect) B. pertussis DNA (PCR) (Not Detect) Coronavirus OC43 (PCR) (Not Detect) Coronavirus HKU1 (PCR) (Not Detect) Coronavirus 229E (PCR) (Not Detect) Coronavirus NL63 (PCR) (Not Detect) Human Metapneumovirus (Not Detect) Influenza A (H1) PCR (Not Detect) Influ A (H1N1/09) PCR (Not Detect) Influenza A (H3) PCR (Not Detect) Influenza A Untype (PCR) (Not Detect) Influenza Type B (PCR) (Not Detect) M.pneumoniae DNA (PCR) (Not Detect) Parainfluenza 1 (PCR) (Not Detect) Parainfluenza 2 (PCR) (Not Detect) Parainfluenza 3 (PCR) (Not Detect) Parainfluenza 4 (PCR) (Not Detect) RSV (PCR) (Not Detect) Entero/Rhino (PCR) (Not Detect) 08/28/16 08/28/16 08/28/16 Range/Units 04:03 04:03 04:03 WBC 13.1 H (4.3-11.1) K/mcL RBC 4.32 (3.82-4.97) M/mcL Hgb 12.8 (11.5-15.4) g/dL Hct 36.5 (35.3-44.9) % MCV 84.5 (83.0-100.0) fL MCH 29.6 (28.0-33.3) pg MCHC 35.1 (31.6-35.5) g/dL RDW 13.0 (11.5-14.5) % Plt Count 181 (140-400) K/mcL MPV 11.8 (9.4-12.4) fL Immature Gran % 0.8 (0-4) % Seg Neutrophils % 69.4 % Lymphocytes % 20.8 % Monocytes % 5.1 % Eosinophils % 3.3 % Basophils % 0.6 % Neutrophils # 9.1 H (1.6-8.9) K/mcL Lymphocytes # 2.7 (0.6-4.6) K/mcL Monocytes # 0.7 (0.0-1.3) K/mcL Eosinophils # 0.4 (0.0-0.6) K/mcL Basophils # 0.1 (0.0-0.2) K/mcL PT (9.4-12.1) Seconds INR APTT (26.0-36.0) Seconds VBG pH (7.32-7.42) pH Units VBG pCO2 (41-51) mmHg VBG pO2 (25-40) mmHg VBG HCO3 (21-27) mEq/L Sodium 136 (136-145) mEq/L Potassium 2.8 L (3.5-4.5) mEq/L Chloride 103 (98-109) mEq/L Carbon Dioxide 24 (19-29) mEq/L BUN 16 (7-20) mg/dL Creatinine 0.80 (0.57-1.11) mg/dL Est GFR ( Amer) > 60 (> 60) Est GFR (Non-Af Amer) > 60 (> 60) BUN/Creatinine Ratio 20 (6-26) Glucose 149 H (70-99) mg/dL POC Glucose (58-89) Est Mean Plasma Glucose mg/dl Hemoglobin A1c ( - 5.6) % Serum Osmolality (280-300) mOsm/kg Calculated Osmolality 286 (280-300) Lactic Acid (0.5-2.2) mmol/L Calcium 8.3 L (8.6-10.8) mg/dL Ionized Calcium 1.12 L (1.15-1.35) mmol/L Phosphorus 2.4 (2.3-4.7) mg/dL Magnesium 1.3 L (1.6-2.6) mg/dL Total Bilirubin (0.2-1.2) mg/dL AST (5-34) Units/L ALT (0-55) Units/L Alkaline Phosphatase (38-126) Units/L Troponin I (0-0.03) ng/mL C-Reactive Protein (Less than 5) mg/L B-Natriuretic Peptide (0-100) pg/mL Serum Total Protein (6.0-8.3) g/dL Albumin (3.5-5.0) g/dL Globulin (2.4-3.5) g/dL Albumin/Globulin Ratio (1.1-2.2) Triglycerides (< 150) mg/dL Cholesterol (< 200) mg/dL LDL Cholesterol, Calc (0-99) mg/dL VLDL Cholesterol, Calc (< 31) mg/dL HDL Cholesterol (40-59) mg/dL Cholesterol/HDL Ratio (0-4.9) Beta-Hydroxybutyric Acd (0.02-0.27) mmol/L TSH (0.350-4.840) mcIU/mL Serum , Qual (Negative) Urine Color (Yellow) Urine Clarity (Clear) Urine pH (5.0-8.0) pH Units Ur Specific Cameron (1.010-1.025) Urine Protein (Neg-Trace) mg/dL Urine Glucose (UA) (Normal) mg/dL Urine Ketones (Negative) mg/dL Urine Blood (Negative) Urine Nitrite (Negative) Urine Bilirubin (Negative) Urine Urobilinogen (Normal) mg/dL Ur Leukocyte Esterase (Negative) Ur Culture Indicated? (NO) Urine Opiates Screen (Eabqdj=586) ng/mL Ur Barbiturates Screen (Vphoaf=493) ng/mL Ur Phencyclidine Scrn (Cutoff=25) ng/mL Ur Amphetamines Screen (Guwqpq=4343) ng/mL U Benzodiazepines Scrn (Cjjkxb=648) ng/mL Urine Cocaine Screen (Cutoff= 300) ng/mL U Marijuana (THC) Screen (Cutoff = 50) ng/mL Chlamy pneumoniae PCR (Not Detect) Adenovirus (PCR) (Not Detect) B. pertussis DNA (PCR) (Not Detect) Coronavirus OC43 (PCR) (Not Detect) Coronavirus HKU1 (PCR) (Not Detect) Coronavirus 229E (PCR) (Not Detect) Coronavirus NL63 (PCR) (Not Detect) Human Metapneumovirus (Not Detect) Influenza A (H1) PCR (Not Detect) Influ A (H1N1/09) PCR (Not Detect) Influenza A (H3) PCR (Not Detect) Influenza A Untype (PCR) (Not Detect) Influenza Type B (PCR) (Not Detect) M.pneumoniae DNA (PCR) (Not Detect) Parainfluenza 1 (PCR) (Not Detect) Parainfluenza 2 (PCR) (Not Detect) Parainfluenza 3 (PCR) (Not Detect) Parainfluenza 4 (PCR) (Not Detect) RSV (PCR) (Not Detect) Entero/Rhino (PCR) (Not Detect) 08/28/16 Range/Units 04:03 WBC (4.3-11.1) K/mcL RBC (3.82-4.97) M/mcL Hgb (11.5-15.4) g/dL Hct (35.3-44.9) % MCV (83.0-100.0) fL MCH (28.0-33.3) pg MCHC (31.6-35.5) g/dL RDW (11.5-14.5) % Plt Count (140-400) K/mcL MPV (9.4-12.4) fL Immature Gran % (0-4) % Seg Neutrophils % % Lymphocytes % % Monocytes % % Eosinophils % % Basophils % % Neutrophils # (1.6-8.9) K/mcL Lymphocytes # (0.6-4.6) K/mcL Monocytes # (0.0-1.3) K/mcL Eosinophils # (0.0-0.6) K/mcL Basophils # (0.0-0.2) K/mcL PT (9.4-12.1) Seconds INR APTT (26.0-36.0) Seconds VBG pH (7.32-7.42) pH Units VBG pCO2 (41-51) mmHg VBG pO2 (25-40) mmHg VBG HCO3 (21-27) mEq/L Sodium (136-145) mEq/L Potassium (3.5-4.5) mEq/L Chloride (98-109) mEq/L Carbon Dioxide (19-29) mEq/L BUN (7-20) mg/dL Creatinine (0.57-1.11) mg/dL Est GFR ( Amer) (> 60) Est GFR (Non-Af Amer) (> 60) BUN/Creatinine Ratio (6-26) Glucose (70-99) mg/dL POC Glucose (58-89) Est Mean Plasma Glucose mg/dl Hemoglobin A1c ( - 5.6) % Serum Osmolality (280-300) mOsm/kg Calculated Osmolality (280-300) Lactic Acid 1.5 (0.5-2.2) mmol/L Calcium (8.6-10.8) mg/dL Ionized Calcium (1.15-1.35) mmol/L Phosphorus (2.3-4.7) mg/dL Magnesium (1.6-2.6) mg/dL Total Bilirubin (0.2-1.2) mg/dL AST (5-34) Units/L ALT (0-55) Units/L Alkaline Phosphatase (38-126) Units/L Troponin I (0-0.03) ng/mL C-Reactive Protein (Less than 5) mg/L B-Natriuretic Peptide (0-100) pg/mL Serum Total Protein (6.0-8.3) g/dL Albumin (3.5-5.0) g/dL Globulin (2.4-3.5) g/dL Albumin/Globulin Ratio (1.1-2.2) Triglycerides (< 150) mg/dL Cholesterol (< 200) mg/dL LDL Cholesterol, Calc (0-99) mg/dL VLDL Cholesterol, Calc (< 31) mg/dL HDL Cholesterol (40-59) mg/dL Cholesterol/HDL Ratio (0-4.9) Beta-Hydroxybutyric Acd (0.02-0.27) mmol/L TSH (0.350-4.840) mcIU/mL Serum , Qual (Negative) Urine Color (Yellow) Urine Clarity (Clear) Urine pH (5.0-8.0) pH Units Ur Specific Cameron (1.010-1.025) Urine Protein (Neg-Trace) mg/dL Urine Glucose (UA) (Normal) mg/dL Urine Ketones (Negative) mg/dL Urine Blood (Negative) Urine Nitrite (Negative) Urine Bilirubin (Negative) Urine Urobilinogen (Normal) mg/dL Ur Leukocyte Esterase (Negative) Ur Culture Indicated? (NO) Urine Opiates Screen (Kzzqbv=429) ng/mL Ur Barbiturates Screen (Ukbyui=678) ng/mL Ur Phencyclidine Scrn (Cutoff=25) ng/mL Ur Amphetamines Screen (Minlef=0799) ng/mL U Benzodiazepines Scrn (Wfaeqo=610) ng/mL Urine Cocaine Screen (Cutoff= 300) ng/mL U Marijuana (THC) Screen (Cutoff = 50) ng/mL Chlamy pneumoniae PCR (Not Detect) Adenovirus (PCR) (Not Detect) B. pertussis DNA (PCR) (Not Detect) Coronavirus OC43 (PCR) (Not Detect) Coronavirus HKU1 (PCR) (Not Detect) Coronavirus 229E (PCR) (Not Detect) Coronavirus NL63 (PCR) (Not Detect) Human Metapneumovirus (Not Detect) Influenza A (H1) PCR (Not Detect) Influ A (H1N1/09) PCR (Not Detect) Influenza A (H3) PCR (Not Detect) Influenza A Untype (PCR) (Not Detect) Influenza Type B (PCR) (Not Detect) M.pneumoniae DNA (PCR) (Not Detect) Parainfluenza 1 (PCR) (Not Detect) Parainfluenza 2 (PCR) (Not Detect) Parainfluenza 3 (PCR) (Not Detect) Parainfluenza 4 (PCR) (Not Detect) RSV (PCR) (Not Detect) Entero/Rhino (PCR) (Not Detect) Assessments/Treatments Assess IV fluid Rate Start: 08/27/16 22: 12 Freq: q3h Status: Active Document 08/28/16 00:30 WKB (Rec: 08/28/16 03:26 [id number]) Document 08/28/16 03:40 WKB (Rec: 08/28/16 04:46 [id number]) Critical Care Flow Sheet Start: 08/28/16 01: 27 Freq: Q2H Status: Active Document 08/28/16 00:30 WKB (Rec: 08/28/16 03:26 [id number]) Blood Glucose Assessment Blood Glucose* 269 Rounding Hourly Rounding Checked for Patient Positioning Patient Personal Items Placed Within Reach Checked Patient Pain Level Hourly Rounding Completed Yes Patient Awake Bedrest No Turn Q 2HR No Patient Position Back Positioning Aides Pillows Head of Bed Position (degrees) 30 Safety Call Light Within Reach Bed Position Low Phone Within Reach Bed Brake On Side Rails Up X2 Document 08/28/16 03:40 WKB (Rec: 08/28/16 04:46 [id number]) Blood Glucose Assessment Blood Glucose* 150 Pain Assessment Pain Present Reports No Pain Rounding Hourly Rounding Checked for Patient Positioning Patient Helped to Bathroom or Assisted with Bedpan or Urinal Patient Personal Items Placed Within Reach Checked Patient Pain Level Hourly Rounding Completed Yes Patient Awake Bedrest No Turn Q 2HR No Patient Position Back Specialty Bed In Use Yes Safety Call Light Within Reach Phone Within Reach Bed Brake On Side Rails Up X2 Document 08/28/16 05:15 WKB (Rec: 08/28/16 05:15 WKB [id number]) Pain Assessment Pain Present Reports No Pain Rounding Hourly Rounding Checked for Patient Positioning Patient Personal Items Placed Within Reach Checked Patient Pain Level Hourly Rounding Completed Yes Patient Sleeping Bedrest No Turn Q 2HR No Patient Position Sitting up in Bed Head of Bed Position (degrees) 40 Safety Call Light Within Reach Bed Position Low Phone Within Reach Bed Brake On Side Rails Up X2 Document 08/28/16 05:51 TNM (Rec: 08/28/16 05:55 TNM [id number]) Vital Signs (Critical Care) Temperature (97.6 F-99.6 F) 97.6 F Temperature Source Oral Pulse Rate 74 Respiratory Rate 18 Pulse Oximetry (95-100) 97 Oxygen Delivery Room Air Blood Pressure 113/53 Source Automatic Cuff Weight Assessment Weight 86.273 kg Weight Measurement Method Built in Bedscale Rounding Hourly Rounding Checked for Patient Positioning Patient Helped to Bathroom or Assisted with Bedpan or Urinal Patient Personal Items Placed Within Reach Hourly Rounding Completed Yes Patient Awake Bedrest No Turn Q 2HR No Patient Position Back Specialty Bed In Use Yes Equipment in Use Specialty Bed Safety Call Light Within Reach Bed Position Low Phone Within Reach Bed Brake On Side Rails Up X2 ED Discharge Assessment Start: 08/27/16 20: 09 Freq: Status: Active Document 08/27/16 23:55 TAB (Rec: 08/27/16 23:58 TAB [id number]) ED Discharge Assessment ED Discharge Disposition Admitted ED Condition on Discharge Fair Med Rec/Patient Pharmacy Completed? No Barriers to Learning None Admitted to 2N Bed assigned 2 n 12 Report given to Nurse Care transferred to (name/credentials) Bill RN Information relayed patient's care treatments medications given condition Pain Scale 0 Pain Scale Used Standard (1-10) Blood Pressure 104/81 Heart rate 89 Respiratory Rate 16 Oxygen Delivery Room Air Oxygen Saturation 96 Critical Care Minutes 0 ED Nausea/Vomiting/Diarrhea Assessment Start: 08/27/16 20: 09 Freq: Status: Complete Document 08/27/16 20:09 TAB (Rec: 08/27/16 20:48 TAB [id number]) Nausea/Vomiting/Diarrhea Onset "yesterday" Associated Abdominal Pain No Consistency Constant Context Unknown Improves With Nothing Level Of Consciousness Awake Alert Appropriate Follows Commands Patient Orientation Person Place Name Age Date of Respiratory Depth Normal Respiratory Effort Non-Labored Respiratory Pattern Regular Abdomen Description Soft Large Round Date of Last Bowel Movement 08/27/16 ED Comment 'since june I have been on ATBX for sinus infection along steroids, i left last night because I was afraid to be admitted, afraid to know I was diabetic" Electrolyte Protocol Orders Start: 08/27/16 22: 30 Freq: AD Status: Active Document 08/28/16 05:15 WKB (Rec: 08/28/16 05:15 WKB [id number]) Fall Precautions ([facility]) Start: 08/28/16 01: 26 Freq: Q12H Status: Active Document 08/28/16 00:30 WKB (Rec: 08/28/16 03:26 WKB [id number]) [facility] Fall Risk Assessment Tool Age less than60 years age (0 points) Fall History No falls within last 6 months (0 points) Elimination, Bowel, and Urine Urgency/frequency and incontinence (4 points) Medications: Includes ANIMAL BIOLOGIST/opiates, N/A (0 points) antivulsants, ant-hypertensives, diuretics, hypnotics, Patient Care Equipment: Any equipment Two present (2 points) that tethers patient (e.g. IV infusions, chest tube, indwelling Mobility N/A (0 points) Cognition N/A (0 points) Total Fall Risk Score 6 Fall Risk Category Moderate Risk (6-13) Fall Risk Interventions Low Risk Interventions Bed in lowest position Top side rails up x 2 Secure brake on bed Use properly fitting non-skid footwear Call light and frequently needed objects within reach Encourage patients/families to call for assistance when needed Fall education including risk assessment, injury risk and routine/ Inspect environment for safety and communication risk Supervise and assist with toileting/ADLs as needed Glucose, blood point of care measurement Start: 08/27/16 22: 16 Freq: Q1H Status: Active Document 08/28/16 01:39 WKB (Rec: 08/28/16 01:40 WKB [id number]) Blood Glucose Assessment Blood Glucose* 120 Document 08/28/16 03:40 WKB (Rec: 08/28/16 04:46 WKB [id number]) Document 08/28/16 04:30 WKB (Rec: 08/28/16 04:41 WKB [id number]) Blood Glucose Assessment Blood Glucose* 144 Document 08/28/16 05:27 WKB (Rec: 08/28/16 05:27 WKB [id number]) Blood Glucose Assessment Blood Glucose* 212 IV-Invasive Line Management Start: 08/28/16 01: 26 Freq: q4h Status: Active Document 08/28/16 00:30 WKB (Rec: 08/28/16 03:26 WKB [id number]) IV/Invasive Line Assessment Right Forearm Date of Insertion 08/28/16 Time of Insertion 00:05 Reason for Line Insertion/Rationale for Provide Access for IV Insertion Medication(s) Gauge (gauge) 20 IV Catheter Type Peripheral IV Site Observation Patent [place] Site Observation Intervention [place] IV Inserted Dressing Applied Dry/Intact Line Care Saline Flush P-Locked Check Blood Return Right Antecubital Date of Insertion 08/27/16 Time of Insertion 20:36 Reason for Line Insertion/Rationale for Replace Lost Fluids Insertion Provide Access for Emergency Gauge (gauge) 20 IV Catheter Type Peripheral IV Site Observation Patent Dressing Applied Window Dressing Document 08/28/16 03:40 WKB (Rec: 08/28/16 04:46 WKB [id number]) IV/Invasive Line Assessment Right Forearm Date of Insertion 08/28/16 Time of Insertion 00:05 Reason for Line Insertion/Rationale for Provide Access for IV Insertion Medication(s) Gauge (gauge) 20 IV Catheter Type Peripheral IV Site Observation Patent [place] Site Observation Intervention [place] IV Inserted Dressing Applied Dry/Intact Line Care P-Locked Right Antecubital Date of Insertion 08/27/16 Time of Insertion 20:36 Reason for Line Insertion/Rationale for Replace Lost Fluids Insertion Provide Access for Emergency Gauge (gauge) 20 IV Catheter Type Peripheral IV Site Observation Patent Dressing Applied Window Dressing Initial Patient Assessment Start: 08/28/16 01: 26 Freq: Status: Active Document 08/28/16 01:30 WKB (Rec: 08/28/16 01:36 WKB [id number]) General Questions Date of Arrival on Unit 08/28/16 Time of Arrival on Unit 00:25 Admitted From Emergency Dept Chief Complaint dka History Provided By Patient Orientation To Call Light Bed Phone TV Bathroom Smoking Policy Visiting Hours Procedures ID Bracelet On Emergency Contact Name Luis Squires Relationship to Patient boyfriend Emergency Contact Phone Number [phone] Patient Health Portal Patient was provided information on Yes accessing patient portal Patient Requests Portal Enrollment No Reason No Portal Enrollment Patient Declines Malnutrition Screening Tool (MST) Have You Recently Lost Weight Without No Trying Advance Directives Advance Directives No Advance Directives Information Provided Yes Patient Rights Copy of Rights Given and Verbalizes Yes Understanding Tobacco Free Rindge: Copy of AHS Yes Statement Given and Patient Verbalizes Understanding Communication Ability Preferred Language Ivorian Ability to Follow Directions Excellent Able to Read Yes Able to Write Yes Communication Tools None Learning Preferences One-on-One Instruction Hearing Ability Normal Visual Assistive Devices None Pain Assessment Do You Have Any Ongoing (Chronic) Pain No Problems Educated on Pain Scale Yes Past Medical History Medical history diabetes hypertension other Female Surgical History non-contributory Psychiatric history anxiety Smoking Status Current every day smoker Smokeless Tobacco Status No Alcohol use none Drug use none Occupational status disabled Current living situation Home With Family Activity level Independent ambulation Recent Out of Country Travel Within the No Last 8 Weeks Exposure or Possible Exposure to Illness No During Travel Family History-Meaningful Use Mother Name Milagro Gudino Ethnicity Non- Living Status Age at 77 Cause of Alzheimers Spiritual Needs Spiritual Referral None Psychosocial Over Age 75 and Lives Alone or Over Age No 80 Potential Need for Follow-up Care (ECF, No Home Health, ECT) Developmentally Disabled or History of No Mental Health 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 Terminal Implications Responsible for Care of Others No Suicidal or Homicidal Ideation No Social Service Consult Needed Yes Functional Assessment Employment Status Disabled Eating (Feeding) Ability Independent Bathing Ability Independent Upper Body Dressing Ability Independent Lower Body Dressing Ability Independent Ambulation Ability Independent Toileting Ability Independent Bladder Continent Bowel Continent Normal Bowel Pattern Daily Measure intake and output Start: 08/27/16 22: 14 Freq: QSHIFT Status: Active Document 08/28/16 03:40 WKB (Rec: 08/28/16 04:46 WKB [id number]) Intake and Output Output, Urine Amount 150 Urine Color Pale Document 08/28/16 05:27 WKB (Rec: 08/28/16 05:27 WKB [id number]) Intake and Output Output, Urine Amount 75 Measure weight Start: 08/27/16 22: 14 Freq: DAILY Status: Active Document 08/28/16 00:24 J (Rec: 08/28/16 01:26 [facility] [id number]) Height and Weight Weight 85.2 kg Weight Measurement Method Built in [facility] Med [employer] Tech Start: 08/27/16 21: 43 Freq: Status: Active Document 08/27/16 21:44 EJD (Rec: 08/27/16 21:44 EJD [id number]) Pharmacy Med Rec Tech Home Medicatons Reconciled? Yes Was this to catch up from previous day No Does patient take 10 or more medications No ? Does patient request medication No education Do home meds include Coumadin, Xarelto, No Pradaxa, Eliquis Added Patient Preferred Pharmacy Yes Verified Allergies Yes Would Patient Like to use [facility] Patient Pharmacy Patient Belongings Start: 08/28/16 01: 26 Freq: Status: Active Document 08/28/16 01:30 WKB (Rec: 08/28/16 01:36 WKB [id number]) Patient Belongings Belongings With Patient on Admission Yes In Patient Closet Patient Belongings Purse Patient Rounding Start: 08/27/16 20: 09 Freq: Q30M Status: Active Document 08/27/16 20:09 TAB (Rec: 08/27/16 20:48 TAB [id number]) Patient Rounding Safety Call Light Within Reach Bed Position Low Bed Brake On Are the Floors Free From Trip Hazards? Yes Is the Room Free From Clutter? Yes Rounding Completed? Yes Patient Rounding Updated patient/family on Plan of Care Checked for Patient Positioning Patient Awake Document 08/27/16 20:39 TAB (Rec: 08/27/16 23:40 TAB [id number]) Patient Rounding Safety Call Light Within Reach Bed Position Low Bed Brake On Are the Floors Free From Trip Hazards? Yes Is the Room Free From Clutter? Yes Rounding Completed? Yes Patient Rounding Updated patient/family on Plan of Care Checked for Patient Positioning Patient Awake Document 08/27/16 21:09 TAB (Rec: 08/27/16 23:40 TAB [id number]) Patient Rounding Safety Call Light Within Reach Bed Position Low Bed Brake On Are the Floors Free From Trip Hazards? Yes Is the Room Free From Clutter? Yes Rounding Completed? Yes Patient Rounding Updated patient/family on Plan of Care Checked for Patient Positioning Patient Awake Document 08/27/16 21:39 TAB (Rec: 08/27/16 23:41 TAB [id number]) Patient Rounding Safety Call Light Within Reach Bed Position Low Bed Brake On Are the Floors Free From Trip Hazards? Yes Is the Room Free From Clutter? Yes Rounding Completed? Yes Patient Rounding Updated patient/family on Plan of Care Checked for Patient Positioning Patient Awake Document 08/27/16 22:09 TAB (Rec: 08/27/16 23:41 TAB [id number]) Patient Rounding Safety Call Light Within Reach Bed Position Low Bed Brake On Are the Floors Free From Trip Hazards? Yes Is the Room Free From Clutter? Yes Rounding Completed? Yes Patient Rounding Updated patient/family on Plan of Care Checked for Patient Positioning Patient Awake Document 08/27/16 22:12 TAB (Rec: 08/27/16 23:41 TAB [id number]) Patient Rounding Safety Call Light Within Reach Bed Position Low Bed Brake On Are the Floors Free From Trip Hazards? Yes Is the Room Free From Clutter? Yes Rounding Completed? Yes Patient Rounding Updated patient/family on Plan of Care Checked for Patient Positioning Patient Awake Document 08/27/16 22:39 TAB (Rec: 08/27/16 23:43 TAB [id number]) Patient Rounding Safety Call Light Within Reach Bed Position Low Bed Brake On Are the Floors Free From Trip Hazards? Yes Is the Room Free From Clutter? Yes Rounding Completed? Yes Patient Rounding Updated patient/family on Plan of Care Checked for Patient Positioning Patient Awake Document 08/27/16 23:09 TAB (Rec: 08/27/16 23:43 TAB [id number]) Patient Rounding Safety Call Light Within Reach Bed Position Low Bed Brake On Are the Floors Free From Trip Hazards? Yes Is the Room Free From Clutter? Yes Rounding Completed? Yes Patient Rounding Updated patient/family on Plan of Care Checked for Patient Positioning Patient Awake RT Respiratory Medication Delivery Start: 08/28/16 04: 23 Freq: Status: Active Document 08/28/16 04:23 JNL (Rec: 08/28/16 04:24 JNL [id number]) Respiratory Therapy Pre Assessment SPO2 (95-100) 99 Heart rate 71 Respiratory Rate 18 Oxygen Delivery Method Room Air FIO2 (%) 21 Throughout Breath Sounds Clear Diminished Treatment Modality Nebulizer Therapy Respiratory Medications Duoneb Medication Delivery Device Mouthpiece Treatment Tolerance Excellent Initial Aerosol/MDI/DPI* Yes Post RT Medication Delivery Post Heart rate 72 Post Respiratory Rate (breaths/min) 17 Throughout Post Breath Sounds Clear Diminished Treatment Outcome No Change Respiratory Therapy has recognized a No potential need for Home Oxygen Respiratory Therapy has recognized a No potential need for Home BIPAP/CPAP RT Cough/Suction Cough Description None Sputum Amount None Saline lock insertion/management Start: 08/27/16 20: 09 Freq: Status: Complete Document 08/27/16 20:42 JRR (Rec: 08/27/16 20:43 JRR [id number]) IV Insertion/Site Assessment IV Attempt 1 Successful Successful Blood drawn and sent to Lab Yes Right Antecubital Date of Insertion 08/27/16 Time of Insertion 20:36 Reason for IV Insertion Replace Lost Fluids Provide Access for Emergency IV Catheter Type Peripheral IV Gauge (gauge) 20 Site Observation Patent Dressing Applied Window Dressing Patient Tolerance Tolerated Well Sepsis Screening Start: 08/28/16 01: 26 Freq: Q4H Status: Active Document 08/28/16 00:30 WKB (Rec: 08/28/16 03:26 WKB [id number]) Sepsis Screening Sepsis Infection Criteria Present suspected infection Sepsis SIRS Criteria WBC > 12k or < 4k or bands > 10% Sepsis Screen No Definite Risk Sepsis Action Taken no action required Document 08/28/16 03:40 WKB (Rec: 08/28/16 04:46 WKB [id number]) Sepsis Screening Sepsis Infection Criteria Present suspected infection Sepsis SIRS Criteria WBC > 12k or < 4k or bands > 10% Sepsis Screen No Definite Risk Sepsis Action Taken no action required Skin Risk Assessment Scale Start: 08/28/16 01: 26 Freq: q12h Status: Active Document 08/28/16 00:30 WKB (Rec: 08/28/16 03:26 WKB [id number]) Skin Risk Assessment Scale Moisture Risk Rarely Moist Sensory Perception No Impairment Activity Risk Walks Frequently Mobility Risk No Limitations Nutrition Risk Excellent Friction & Shear Risk No Apparent Problem Skin Risk Total Score (points) 23 System Review ICU/2N Start: 08/28/16 01: 26 Freq: Q4H Status: Active Document 08/28/16 00:30 WKB (Rec: 08/28/16 03:26 WKB [id number]) Pain Assessment Pain Present Reports No Pain Neurological Assessment Eye Opening Spontaneous Motor Obeys Commands Verbal Oriented Coma Scale Total 15 Neurologic Status Alert Patient Orientation Person Place Time Arousable To Name Speech Pattern Normal rate Normal rhythm Normal tone Appropriate Clear Patient Behavior Appropriate Cooperative Mood Description Calm Relaxed Bilateral Pupil Reaction Reactive Pupil Size (mm) 3 Pupil Ewing Equal Scleral Edema No Jv Baseball Coach Strength Equal Push/Pull Equal Numbness/Tingling No Facial Symmetry Symmetrical Cardiovascular Assessment Signs and Symptoms None Heart Sounds S1 & S2 Rhythm Regular Pulse Assessment Method Auscultation Right Radial 2+ Left Radial 2+ Right Dorsalis Pedis 2+ Left Dorsalis Pedis 2+ Right Posterior Tibialis 2+ Left Posterior Tibialis 2+ Jugular Vein Distention None Capillary Refill < 3 Seconds Circulatory Tenderness Description None Chest Pain Complaint No Mechanical Prophylaxis No Cardiac Monitoring Monitor Number [id number] Strip placed in Chart Yes History Reviewed Yes Alarms/Limits HR Alarm 120/50 SBP Alarm 160/90 SPO2 Alarm 100/90 Heart Rate 85 EKG Method Telemetry Rhythm Sinus Rhythm ME Interval 0.11 QRS Interval 0.10 QT Interval 0.38 Respiratory Assessment Respiratory Symptoms None Effort Spontaneous Non-Labored Depth Normal Respiratory Pattern Regular Chest Shape Normal Expansion Symmetrical All Lung Stoll Clear Oxygen Delivery Method Room Air Cough Description None Sputum Amount None Gastrointestinal Assessment Abdomen Description Non-Tender Large 3 or more loose stools, in less than 24 No hours Nausea/Vomiting Presence None All Four Quadrants Active Genitourinary Assessment Genitourinary Symptoms Urinary Frequency Bladder Pattern Frequency Voiding Method Toilet Bladder Distention None Suprapubic Tenderness with Palpation No Comment: no urine to assess at this time Integumentary Assessment Fingernail Color Yellow Nail Bed Appearance Pale Temperature Warm Moisture Dry Turgor Normal Color Normal Evidence of Incision/Wounds/Breakdown No Mucous membranes moist, pink and intact Yes Oral Cavity Normal Musculoskeletal Assessment Musculoskeletal Symptoms None Document 08/28/16 03:40 WKB (Rec: 08/28/16 04:46 WKB [id number]) Neurological Assessment Eye Opening Spontaneous Motor Obeys Commands Verbal Oriented Coma Scale Total 15 Neurologic Status Alert Patient Orientation Person Place Time Arousable To Name Speech Pattern Normal rate Normal rhythm Normal tone Appropriate Clear Patient Behavior Appropriate Cooperative Mood Description Calm Relaxed Bilateral Pupil Ewing Equal Scleral Edema No Jv Baseball Coach Strength Equal Push/Pull Equal Numbness/Tingling No Facial Symmetry Symmetrical Cardiovascular Assessment Signs and Symptoms None Heart Sounds S1 & S2 Rhythm Regular Pulse Assessment Method Auscultation Right Radial 2+ Left Radial 2+ Right Dorsalis Pedis 2+ Left Dorsalis Pedis 2+ Right Posterior Tibialis 2+ Left Posterior Tibialis 2+ Jugular Vein Distention None Capillary Refill < 3 Seconds Circulatory Tenderness Description None Chest Pain Complaint No Mechanical Prophylaxis No Cardiac Monitoring Monitor Number [id number] Strip placed in Chart Yes History Reviewed Yes Alarms/Limits HR Alarm 120/50 SBP Alarm 160/90 SPO2 Alarm 100/90 Heart Rate 72 EKG Method Telemetry Rhythm Sinus Rhythm ME Interval 0.12 QRS Interval 0.09 QT Interval 0.40 Respiratory Assessment Respiratory Symptoms None Effort Spontaneous Non-Labored Depth Normal Respiratory Pattern Regular Chest Shape Normal Expansion Symmetrical All Lung Stoll Clear Oxygen Delivery Method Room Air FIO2 (%) (%) 21 Cough Description None Sputum Amount None Gastrointestinal Assessment Abdomen Description Non-Tender Large 3 or more loose stools, in less than 24 No hours Nausea/Vomiting Presence None All Four Quadrants Active Teaching Record Start: 08/28/16 01: 26 Freq: Q12H Status: Active Document 08/28/16 00:30 WKB (Rec: 08/28/16 03:26 WKB [id number]) Teaching Record: General Education Topics Medications Disease Process Hospital Environment Diet Exercise/Activity Equipment Use Pertinence Diabetes Response Verbalize understanding Reinforcement needed Methods Discussion Recipient Patient Education Provided: Details insulin, electrolytes, dm, room orientation, npo, up with assist, spo2/cardiac monitoring Thrombosis Risk Factor Assessment Start: 08/28/16 01: 26 Freq: Status: Active Document 08/28/16 01:30 WKB (Rec: 08/28/16 01:36 WKB [id number]) Thrombosis Risk Factor Assessment Each Factor Represents 1 point Age 41 - 59 years Other congenital or acquired No thrombophilia - If yes, enter Type in comment Total Risk Factor Score 1 Risk Level Low Risk Triage Start: 08/27/16 20: 04 Freq: Status: Active Document 08/27/16 20:04 [facility] (Rec: 08/27/16 20:09 [facility] [id number]) Triage Chief Complaint triage ED Nausea/Vomiting/Diarrhea Patient Stated Complaint "elevated blood sugar" FITZ 2 Onset (ago) day(s) Description of Symptoms Patient reports was diagnosed last night with diabeties and tonight it is running high. General Appearance alert Work Related Injury? No Mode of arrival ambulatory Source patient Limitations no limitations Ebola Risk: Travel/Contact With Anyone No From Affected Area/s Has Patient Experienced Ebola Symptoms No Temperature (97.6 F-99.6 F) 97.3 F L Temperature Source Oral Pulse Rate 125 Respiratory Rate 16 Blood Pressure 162/96 O2 Sat by Pulse Oximetry (95-100) 98 Oxygen Delivery Room Air Height 1.65 m Weight 85.275 kg Weight Measurement Method Standing Scale Pain Scale 0 Pain Scale Used Standard (1-10) Medical history diabetes hypertension other Female surgical history non-contributory Psychiatric history anxiety Smoking Status Current every day smoker Smokeless Tobacco Status No Alcohol Use none Drug Use none Patient resides with/at Significant Other Do you currently feel hopless, have No thoughts of self harm, or thoughts of harming others History of fall in last 14 days? 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 Influenza vaccine up to date No Pneumonia vaccine up to date No Tetanus UTD no Coma Scale Eye Opening Spontaneous Coma Scale Motor Response Obeys Commands Coma Scale Verbal Response Oriented Coma Scale Total 15 Vital Signs Assessment Start: 08/27/16 20: 09 Freq: Status: Active Document 08/27/16 20:09 TAB (Rec: 08/27/16 20:48 TAB [id number]) ED Vital Signs Pain Reported No Pain Reported Pain Scale 0 Pain Scale Used Standard (1-10) Blood Pressure 162/96 Blood Pressure Location Left Arm Source Automatic Cuff Position HOB Elevated Pulse Rate 125 Rhythm Regular Strength Normal Respiratory Rate 16 Depth Normal Effort Non-Labored Pattern Regular Pulse Oximetry (95-100) 98 Oxygen Delivery Room Air Document 08/27/16 20:39 TAB (Rec: 08/27/16 23:40 TAB [id number]) ED Vital Signs Pain Reported No Pain Reported Pain Scale 0 Pain Scale Used Standard (1-10) Blood Pressure 137/102 Blood Pressure Location Left Arm Source Automatic Cuff Position HOB Elevated Pulse Rate 101 Rhythm Regular Strength Normal Respiratory Rate 16 Depth Normal Effort Non-Labored Pattern Regular Pulse Oximetry (95-100) 97 Oxygen Delivery Room Air Document 08/27/16 21:39 TAB (Rec: 08/27/16 23:41 TAB [id number]) ED Vital Signs Pain Reported No Pain Reported Pain Scale 0 Pain Scale Used Standard (1-10) Blood Pressure 149/89 Blood Pressure Location Left Arm Source Automatic Cuff Position HOB Elevated Pulse Rate 106 Rhythm Regular Strength Normal Respiratory Rate 16 Depth Normal Effort Non-Labored Pattern Regular Pulse Oximetry (95-100) 96 Oxygen Delivery Room Air Document 08/27/16 22:39 TAB (Rec: 08/27/16 23:43 TAB [id number]) ED Vital Signs Pain Reported No Pain Reported Pain Scale 0 Pain Scale Used Standard (1-10) Blood Pressure 104/81 Blood Pressure Location Left Arm Source Automatic Cuff Position HOB Elevated Pulse Rate 89 Rhythm Regular Strength Normal Respiratory Rate 16 Depth Normal Effort Non-Labored Pattern Regular Pulse Oximetry (95-100) 97 Oxygen Delivery Room Air Document 08/28/16 00:24 [facility] (Rec: 08/28/16 01:30 [facility] [id number]) Vital Signs with MEWS Temperature (97.6 F-99.6 F) 98.1 F Temperature Source Oral Pulse Rate 84 Respiratory Rate 16 Pulse Oximetry (95-100) 98 Oxygen Delivery Room Air Blood Pressure 123/82 Blood Pressure Location Left Arm Neuro Status *recalled from last Alert documentation MEWS Score 1 Discharge Information ED Provider: Lalo Vyas Status: Departed Time Seen by Provider: 08/27/16 20:11 Condition: Triaged At: 08/27/16 20:04 Emergency Discharge Date/Time: 08/28/16 00:13 Emergency Discharge Disposition: Admitted As Inpatient Clinical Impression Uncontrolled type 2 diabetes mellitus with hyperosmolar nonketotic hyperglycemia Emergency Discharge Comment: Admit Intervention Last Done ED Nausea/Vomiting/Diarrhea Assessment 08/27/16 20:09 Query Result Nausea/Vomiting/Diarrhea Onset "yesterday" Nausea/Vomiting/Diarrhea Associated No Abdominal Pain Nausea/Vomiting/Diarrhea Consistency Constant Nausea/Vomiting/Diarrhea Context Unknown Nausea/Vomiting/Diarrhea Improves With Nothing Level Of Consciousness Awake Alert Appropriate Follows Commands Patient Orientation Person Place Name Age Date of Respiratory Depth Normal Respiratory Effort Non-Labored Respiratory Pattern Regular Abdomen Description Soft Large Round Date of Last Bowel Movement 08/27/16 ED Comment 'since june I have been on ATBX for sinus infection along steroids, i left last night because I was afraid to be admitted, afraid to know I was diabetic" ED Discharge Assessment 08/27/16 23:55 Query Result ED Discharge Disposition Admitted ED Condition on Discharge Fair Med Rec/Patient Phamracy completed? No Barriers to Learning None ED Admit to 2N Bed assigned 2 n 12 Report given to Nurse Care transferred to Bill RN Information relayed patient's care treatments medications given condition Severity scale (1-10) 0 Pain Scale Used Standard (1-10) Blood Pressure 104/81 Heart rate 89 Respiratory Rate 16 Oxygen Delivery Room Air Pulse Oximetry Reading 96 Critical Care Minutes 0 Observation Discharge Date/Time: Observation Discharge Disposition: Observation Discharge Comment: Instructions: Stand-Alone Forms: Prescriptions: Visit Report - Forms: - Referrals:
[2016-08-28] MEDS ORDERED: Benzonatate 100 MG CAPSULE PO PRN (07:48)
[2016-08-28] MEDS ORDERED: *HR* Enoxaparin 40 MG/0.4 ML SYRINGE SQ ONE (07:48)
[2016-08-28] MEDS: Nicotine 21 MG PATCH.TD24 TD SCH (08:59)
[2016-08-28] MEDS ORDERED: Levofloxacin 750 MG/150 ML 750 MG/150 ML BAG IVPB SCH (09:00)
[2016-08-28] MEDS: Loratadine 10 MG TABLET PO SCH (09:01)
[2016-08-28] MEDS: Acetaminophen 325 MG TABLET PO PRN ×2 (09:04→12:50)
[2016-08-28] MEDS: Insulin LISPRO 300 UNITS/3 ML VIAL SQ SCH ×3 (09:10→16:59)
[2016-08-28 10:53] LABS: BUN/Creatinine Ratio 17 (6-26); Blood Urea Nitrogen 14 mg/dL (7-20); Carbon Dioxide 23 mEq/L (19-29); Chloride 104 mEq/L (98-109); Glucose 288 mg/dL (70-99); Magnesium 1.6 mg/dL (1.6-2.6); Osmolality,Calculated 293 (280-300); Potassium 3.4 mEq/L (3.5-4.5); Sodium 136 mEq/L (136-145); eGFR For African Americans > 60 (> 60); eGFR For Non-African Americans > 60 (> 60)
--- NOTE | 2016-08-28 12:29 | Discharge Summary ---
Date of Encounter: 08/29/16 Time of Encounter: 10:44 - Discharge Diagnosis (1) Uncontrolled type 2 diabetes mellitus with hyperosmolar nonketotic hyperglycemia Priority: Primary Status: Acute (2) URI with cough and congestion Priority: Primary Status: Resolved (3) Acute sinusitis, unspecified Priority: Primary Status: Chronic Qualifiers: Sinusitis location: sphenoidal Recurrence: recurrent Qualified Code(s): J01.31 - Acute recurrent sphenoidal sinusitis (4) HTN (hypertension) Priority: Secondary Status: Chronic Qualifiers: Hypertension type: essential hypertension Qualified Code(s): I10 - Essential (primary) hypertension (5) Nicotine dependence with nicotine-induced disorder Priority: Secondary Status: Chronic Qualifiers: Nicotine product type: cigarettes Qualified Code(s): F17.219 - Nicotine dependence, cigarettes, with unspecified nicotine-induced disorders - Discharge Medications Prescriptions: Metformin [Glucophage] 500 mg PO BIDWM #30 tablet Saline Nasal Miracle [[place] Nasal Miracle] 2 spray NS QID 10 Days Home Medications: Cetirizine HCl [Zyrtec] 10 mg PO DAILY 08/06/15 [History] Hydrochlorothiazide 25 mg PO DAILY 08/06/15 [History] Fluticasone Propionate Nasal [Flonase] 100 mcg NS DAILY 08/27/16 [History] Ibuprofen 800 mg PO TID PRN 08/27/16 [History] Metformin [Glucophage] 500 mg PO BIDWM #30 tablet 08/28/16 [Rx] Saline Nasal Miracle [[place] Nasal Miracle] 2 spray NS QID 10 Days 08/29/16 [Rx] Allergies/Adverse Reactions: Allergies Amoxicillin [From Amoxil] Allergy (Verified 08/27/16 20:09) Rash Date of admission: 08/27/16 22:09 Primary care physician: Diana Carson Consults: 08/28/16 01:10 Consult to Nurse Navigator [CONS] Routine Comment: 08/28/16 05:36 Consult to Switchman Supervisor [CONS] Routine Comment: 08/28/16 07:46 Consult to Nurse Navigator [CONS] Routine Comment: Discharging clinician: Amy Mcgraw Anticipated date of discharge: 08/29/16 - Patient Status Disposition: Home, Self-Care Condition: Good Functional capacity at discharge: independent ambulation Overall status at discharge: patient is progressing back to baseline - Discharge Instructions Instructions: Metformin (By mouth), Diabetes Mellitus Type 2 in Adults (DC), Chronic Hypertension (DC) Follow Up With: Diana Hollingsworth MD [Primary Care Provider] - (SENT WEB REQUEST ON @ [phone]) - Diet and Activity Activity: resume usual activities as tolerated Diet: diabetic diet, low fat, low cholesterol, low salt diet Hospital course: Ms. Gudino is a 51 year old female with newly diagnosed DM, admitted with hyperglycemic nonketotic hyperosmolar state. She was started on aggressive IV hydration and briefly received IV insulin drip, with improvement in labs and blood sugars, after which she was switched to subcutaneous basal bolus insulin regimen, and tolerated oral diet. This was thought to be precipitated by acute on chronic sinusitis for which she has been treated with oral antibiotics as an outpatient. CT sinuses showed possible polyp vs fungal infection in left sphenoid sinus. ENT was consulted and recommended saline nasal spray along with Flonase and outpatient f/up. Patient significantly improved today and is medically stable for discharge with outpatient f/up. DM educator saw her and she received DSME. Time spent discussing smoking cessation with patient: 3 to 10 minutes - Time Spent with Patient Total time spent providing and/or coordinating discharge services: Greater than 30 minutes (45 min) - Constitutional Vitals: Temp Pulse Resp BP Pulse Ox 98.2 F 78 25 140/93 97 08/28/16 11:57 08/28/16 11:57 08/28/16 11:57 08/28/16 11:57 08/28/16 08:19 General appearance: Present: A&O X 3, answers questions appropriately - Respiratory Respiratory exam: Present: CTAB. Absent: accessory muscle use, rales, rhonchi, wheezes - Cardiovascular Cardiovascular exam: Present: RRR, +S1, +S2. Absent: diastolic murmur, gallop, rubs, systolic murmur
[2016-08-28] MEDS ORDERED: *HR* LORazepam 0.5 MG TABLET PO PRN (13:00)
[2016-08-28] MEDS ORDERED: 0.9 % Sodium Chloride 1,000 ML ONE (13:36)
--- NOTE | 2016-08-28 15:46 | ENT - Consult Note ---
Date of Encounter: 08/28/16 Time of Encounter: 15:43 Assessment and Plan (1) Sinus congestion Current Visit: Yes Status: Chronic Chronic sinus congestion and ? related to nasal dryness. saline nasal sprays and encouraged to use 4 times daily. May benefit from jessy med sinus rinse as outpatient. Restart Flonase nasal spray daily Stop smoking (2) Chronic sphenoidal sinusitis Current Visit: Yes Status: Chronic Chronic sphenoid sinusitis left side with ? air fluid or mucosal thickening near ostium and still with ventilation given air in remainder of the sinus. Fluticasone (Flonase) nasal spray daily as oral steroids (which would help with the sphenoid os swelling) is not recommended with her uncontrolled diabetes. No sign of fungal ball or fungal disease. Can use levaquin or ceftin for treatment if concerned but patient lacks other nasal symptoms. Would like to see as outpatient when medically more stable to discuss management. Thanks for the consult. History of Present Illness Consult date: 08/28/16 Reason for ENT Consult: other (Sinusitis) Requesting physician: Amy Mcgraw History of present illness: 51 year old female admitted for uncontrolled diabetes who reports a long h/o chronic sinusitis. She had a CT scan done 08/26/16 which showed opacification of left sphenoid and ? fungal disease. I was asked to see her while she was here in the hospital. She c/o sinus congestion, bilateral maxillary, frontal and temporal sinus pressure and rare headaches. No real nasal obstruction but feels her nose is dry. no nosebleeds, change of smell, or previous sinus surgery or trauma. Does smoke daily one ppd. States she has AR but never testing. Uses Zyrtec and Flonase daily. She states she had these symptoms and in June was told she had a sinus infectoin and placed on an antibiotic. Seen also in July and treated with another round of antibiotics. Currently she does not take any antibiotic. No fevers or chills. Past Med Surg Social Fam HX - Past Medical History Medical history: arthritis, COPD, diabetes, hypertension, other Psychiatric history: anxiety, other - Past Surgical History Surgical History: non-contributory, other - Social History Smoking Status: Current every day smoker Smokeless Tobacco Status: No Alcohol use: none Drug use: none - Family History Mother Name: Milagro Gudino Family Member Ethnicity: Non- Living Status: Age at : 77 Cause of : Alzheimers Medications and Allergies Cetirizine HCl [Zyrtec] 10 mg PO DAILY 08/06/15 [History] Hydrochlorothiazide 25 mg PO DAILY 08/06/15 [History] Fluticasone Propionate Nasal [Flonase] 100 mcg NS DAILY 08/27/16 [History] Ibuprofen 800 mg PO TID PRN 08/27/16 [History] Metformin [Glucophage] 500 mg PO BIDWM #30 tablet 08/28/16 [Rx] Posaconazole [Noxafil] 100 mg PO DAILY #15 tablet. 08/28/16 [Rx] Allergies Amoxicillin [From Amoxil] Allergy (Verified 08/27/16 20:09) Rash ENT - ROS All systems PM: reviewed and no additional remarkable complaints except as stated ENT Exam Initial Vital Signs Temp Pulse Resp BP Pulse Ox 97.3 F L 125 16 162/96 98 08/27/16 20:04 08/27/16 20:04 08/27/16 20:04 08/27/16 20:04 08/27/16 20:04 Awake, alert, pleasant obese WF in NAD Voice and speech clear and no facial or neck asymmetries EARS: Auricles WNL, no deformity or skin lesoins EAC clear bilaterally. Tm's intact, well aerated, no JERO orinfection Nose: no nasal deformity or lesions Mild SD and dryness left > right with crusting or caudal septum and middle turbinate No OMC erythema, pus, or polyps Airway patent OC/OP: normal mucosa and no lesions seen Tongue and palate move symmetrically Mild dry mucosa 1+ tonsils and no PND No pharyngeal lesions or asymmetries NEck: supple,no LAD or neck masses No thyroid or salivary gland lesions CN's II-XII grossly intact and symmetrical Exam Initial Vital Signs Temp Pulse Resp BP Pulse Ox 97.3 F L 125 16 162/96 98 08/27/16 20:04 08/27/16 20:04 08/27/16 20:04 08/27/16 20:04 08/27/16 20:04 Results - Labs 08/28/16 04:03 08/28/16 10:31 Abnormal lab results WBC 13.1 K/mcL (4.3-11.1) H 08/28/16 04:03 Neutrophils # 9.1 K/mcL (1.6-8.9) H 08/28/16 04:03 APTT 24.9 Seconds (26.0-36.0) L 08/28/16 04:03 VBG pH 7.43 pH Units (7.32-7.42) H 08/28/16 04:03 VBG pO2 74 mmHg (25-40) H 08/28/16 04:03 VBG HCO3 29.9 mEq/L (21-27) H 08/28/16 04:03 Potassium 3.4 mEq/L (3.5-4.5) L 08/28/16 10:31 Glucose 288 mg/dL (70-99) H 08/28/16 10:31 POC Glucose > 600 (58-89) H* 08/27/16 20:00 Hemoglobin A1c 10.2 % (-5.6) H 08/28/16 04:03 Serum Osmolality 312 mOsm/kg (280-300) H 08/27/16 22:37 Calcium 8.0 mg/dL (8.6-10.8) L 08/28/16 10:31 Ionized Calcium 1.09 mmol/L (1.15-1.35) L 08/28/16 10:31 AST 35 Units/L (5-34) H 08/27/16 20:39 C-Reactive Protein 15 mg/L (Less than 5) H 08/28/16 04:03 Globulin 4.2 g/dL (2.4-3.5) H 08/27/16 20:39 Albumin/Globulin Ratio 0.9 (1.1-2.2) L 08/27/16 20:39 Triglycerides 233 mg/dL (< 150) H 08/28/16 04:03 Cholesterol 206 mg/dL (< 200) H 08/28/16 04:03 LDL Cholesterol, Calc 130 mg/dL (0-99) H 08/28/16 04:03 VLDL Cholesterol, Calc 47 mg/dL (< 31) H 08/28/16 04:03 HDL Cholesterol 29 mg/dL (40-59) L 08/28/16 04:03 Cholesterol/HDL Ratio 7.1 (0-4.9) H 08/28/16 04:03 Urine Glucose (UA) >=1000 mg/dL (Normal) H 08/28/16 02:30 Diabetes panel 08/27/16 08/28/16 08/28/16 Range/Units 22:37 04:03 04:03 Sodium 133 L (136-145) mEq/L Potassium 3.1 L (3.5-4.5) mEq/L Chloride 99 (98-109) mEq/L Carbon Dioxide 24 (19-29) mEq/L BUN 21 H (7-20) mg/dL Creatinine 1.15 H (0.57-1.11) mg/dL Glucose 489 H (70-99) mg/dL Hemoglobin A1c 10.2 H ( - 5.6) % Calcium 9.0 (8.6-10.8) mg/dL Triglycerides 233 H (< 150) mg/dL HDL Cholesterol 29 L (40-59) mg/dL 08/28/16 08/28/16 Range/Units 04:03 10:31 Sodium 136 136 (136-145) mEq/L Potassium 2.8 L 3.4 L (3.5-4.5) mEq/L Chloride 103 104 (98-109) mEq/L Carbon Dioxide 24 23 (19-29) mEq/L BUN 16 14 (7-20) mg/dL Creatinine 0.80 0.83 (0.57-1.11) mg/dL Glucose 149 H 288 H (70-99) mg/dL Hemoglobin A1c ( - 5.6) % Calcium 8.3 L 8.0 L (8.6-10.8) mg/dL Triglycerides (< 150) mg/dL HDL Cholesterol (40-59) mg/dL Thyroid panel 08/28/16 Range/Units 04:03 TSH 3.460 (0.350-4.840) mcIU/mL Calcium panel 08/27/16 08/27/16 08/28/16 Range/Units 22:37 22:37 04:03 Calcium 9.0 8.3 L (8.6-10.8) mg/dL Phosphorus 1.8 L 2.4 (2.3-4.7) mg/dL 08/28/16 Range/Units 10:31 Calcium 8.0 L (8.6-10.8) mg/dL Phosphorus 3.0 (2.3-4.7) mg/dL Pituitary panel 08/27/16 08/28/16 08/28/16 Range/Units 22:37 04:03 04:03 Sodium 133 L 136 (136-145) mEq/L Potassium 3.1 L 2.8 L (3.5-4.5) mEq/L Chloride 99 103 (98-109) mEq/L Carbon Dioxide 24 24 (19-29) mEq/L BUN 21 H 16 (7-20) mg/dL Creatinine 1.15 H 0.80 (0.57-1.11) mg/dL Glucose 489 H 149 H (70-99) mg/dL Calcium 9.0 8.3 L (8.6-10.8) mg/dL TSH 3.460 (0.350-4.840) mcIU/mL 08/28/16 Range/Units 10:31 Sodium 136 (136-145) mEq/L Potassium 3.4 L (3.5-4.5) mEq/L Chloride 104 (98-109) mEq/L Carbon Dioxide 23 (19-29) mEq/L BUN 14 (7-20) mg/dL Creatinine 0.83 (0.57-1.11) mg/dL Glucose 288 H (70-99) mg/dL Calcium 8.0 L (8.6-10.8) mg/dL TSH (0.350-4.840) mcIU/mL Adrenal panel 08/27/16 08/28/16 08/28/16 Range/Units 22:37 04:03 10:31 Sodium 133 L 136 136 (136-145) mEq/L Potassium 3.1 L 2.8 L 3.4 L (3.5-4.5) mEq/L Chloride 99 103 104 (98-109) mEq/L Carbon Dioxide 24 24 23 (19-29) mEq/L BUN 21 H 16 14 (7-20) mg/dL Creatinine 1.15 H 0.80 0.83 (0.57-1.11) mg/dL Glucose 489 H 149 H 288 H (70-99) mg/dL Calcium 9.0 8.3 L 8.0 L (8.6-10.8) mg/dL All other labs normal. - Imaging Additional studies: CT scan of sinus reviewed. She has some left inferior mild frontal sinus mucosal thickening with aeration of rest of frontal sinus. Left sphenoid with soft tissue in the sphenoid os and mucosal thickening and ? air fluid in left sphenoid. Aeration in remainder of sphenoid sinus. No fungal ball, calicification, or osteitis noted. remainder of sinuses clear and OMC bilaterally clear. No other lesions or calcifications. Consult Discharge Plan - Plan Referrals: Diana Hollingsworth MD [Primary Care Provider] - (SENT WEB REQUEST ON @ 0014) Prescriptions: Metformin [Glucophage] 500 mg PO BIDWM #30 tablet
--- NOTE | 2016-08-28 16:41 | Electrocardiograph Report ---
[place] [id number] Test Date: 2016-08-27 Pat Name: Maria R Gudino Department: 102 Room: 2N12 Gender: F It Web Development Consultant: : 1965 Requested By: Lalo Vyas Order Number: [id number] Reading MD: Diana Mart Measurements Intervals [place] Rate: 81 P: 31 IL: 137 QRS: 44 QRSD: 85 T: 18 QT: 371 QTc: 408 Interpretive Statements SINUS RHYTHM NONSPECIFIC ST \T\ T-WAVE ABNORMALITY Electronically Signed On 08-28-2016 16:39:15 EDT by Diana Mart
[2016-08-28] MEDS: Saline Nasal Spray 44 ML BOTTLE NS SCH ×2 (16:59→22:14)
--- NOTE | 2016-08-28 18:00 | Internal Med Progress Note ---
Date of Encounter: 08/28/16 Time of Encounter: 12:00 - Assessment and plan (1) Uncontrolled type 2 diabetes mellitus with hyperosmolar nonketotic hyperglycemia Current Visit: Yes Status: Acute Assessment and plan: Patient has newly diagnosed uncontrolled diabetes. She had ER visit yesterday for sinusitis problems and was diagnosed with diabetes, however left AGAINST MEDICAL ADVICE from emergency room. She came back today with hyperglycemic symptoms and was noted to have hyperglycemic hyperosmolar nonketotic state. She was started on IV insulin drip per protocol along with hourly Accu-Chek blood glucose monitoring. Her blood sugars are currently better controlled and she is off IV insulin drip. We will start diabetic diet along with basal bolus subcutaneous insulin regimen. Hemoglobin A1c noted to be 10.2%. Improving electrolytes. art educator consult. (2) URI with cough and congestion Current Visit: Yes Status: Acute Assessment and plan: Chest x-ray shows no evidence of acute infiltrates. Patient had mild leukocytosis at admission which is likely related to metabolic stress from hyperglycemia. Improving today. Continue supportive care with when necessary benzonatate. (3) Acute sinusitis, unspecified Current Visit: Yes Status: Chronic Assessment and plan: Patient has acute on chronic sinusitis symptoms. CT of sinuses from August 26 showed possible polyp and fungal infection of left sphenoid sinus. ENT consulted and recommendations appreciated-continue saline nasal spray along with fluticasone spray; avoid oral steroids due to current hyperglycemia. No antifungals needed. Recommend outpatient ENT follow-up. Qualifiers: Sinusitis location: sphenoidal Recurrence: recurrent Qualified Code(s): J01.31 - Acute recurrent sphenoidal sinusitis (4) HTN (hypertension) Current Visit: Yes Status: Chronic Qualifiers: Hypertension type: essential hypertension Qualified Code(s): I10 - Essential (primary) hypertension (5) Nicotine dependence with nicotine-induced disorder Current Visit: Yes Status: Chronic Assessment and plan: Continue nicotine transdermal patch. Patient is not motivated to quit smoking at this time. Qualifiers: Nicotine product type: cigarettes Qualified Code(s): F17.219 - Nicotine dependence, cigarettes, with unspecified nicotine-induced disorders - Subjective Interval history: Noted to be very anxious and tearful. Reports that she is extremely anxious of being in the hospital and was desperate to be discharged. After multiple attempts to explain the reason for her stay, was agreeable to be monitored for another night. Reports moderate headache related to her chronic sinus issues. Improving cough and congestion, no runny nose, fever, dyspnea. Improving dizziness and polyuria. - Constitutional Vitals: Temp Pulse Resp BP Pulse Ox 98.0 F 91 20 129/71 97 08/28/16 15:52 08/28/16 15:52 08/28/16 15:52 08/28/16 15:52 08/28/16 15:52 General appearance: Present: mild distress, A&O X 3 (tearful and anxious about staying in the hospital), obese, answers questions appropriately - Head Head exam: Present: atraumatic, normocephalic - Neck Neck exam general surgery: Present: supple, trachea midline. Absent: lymphadenopathy - Respiratory Respiratory exam: Present: CTAB. Absent: accessory muscle use, rales, rhonchi, wheezes - Cardiovascular Cardiovascular exam: Present: RRR, +S1, +S2. Absent: diastolic murmur, gallop, rubs, systolic murmur - GI/Abdominal GI/Abdominal exam: Present: normal bowel sounds, soft, no peritoneal signs. Absent: distended, tenderness - Extremities Exam Extremities exam: Present: full ROM, warm, radial pulses palpable and symetrical. Absent: calf tenderness, cyanotic, pedal edema - Neurological Exam Neurological exam: Present: CN II-XII intact, oriented X3, no focal deficits. Absent: pronater drift, facial droop, speech deficit - Skin Skin exam: Present: dry, intact Internal Medicine: Result - Labs CBC & Chem 7: 08/28/16 04:03 08/28/16 10:31 Labs: Short CBC 08/27/16 08/28/16 Range/Units 22:37 04:03 WBC 14.2 H 13.1 H (4.3-11.1) K/mcL Hgb 13.8 12.8 (11.5-15.4) g/dL Hct 39.2 36.5 (35.3-44.9) % Plt Count 180 181 (140-400) K/mcL Neutrophils # 10.4 H 9.1 H (1.6-8.9) K/mcL BMP 08/27/16 08/28/16 08/28/16 22:37 04:03 10:31 Sodium 133 L 136 136 Potassium 3.1 L 2.8 L 3.4 L Chloride 99 103 104 Carbon Dioxide 24 24 23 BUN 21 H 16 14 Creatinine 1.15 H 0.80 0.83 Glucose 489 H 149 H 288 H Calcium 9.0 8.3 L 8.0 L Cardiac Enzymes 08/27/16 08/28/16 08/28/16 Range/Units 22:37 04:03 10:31 Troponin I 0.01 0.01 0.00 (0-0.03) ng/mL Urine 08/28/16 Range/Units 02:30 Urine Color Yellow (Yellow) Urine Clarity Clear (Clear) Urine pH 6.0 (5.0-8.0) pH Units Ur Specific [place] 1.025 (1.010-1.025) Urine Protein Negative (Neg-Trace) mg/dL Urine Glucose (UA) >=1000 H (Normal) mg/dL - ABG Interpretation ABG results: PT/INR, D-dimer PT 11.3 Seconds (9.4-12.1) 08/28/16 04:03 Consult Discharge Plan - Plan Referrals: Diana Hollingsworth MD [Primary Care Provider] - (SENT WEB REQUEST ON @ 101) Prescriptions: Metformin [Glucophage] 500 mg PO BIDWM #30 tablet
[2016-08-28] MEDS ORDERED: Insulin DETEMIR 100 UNIT/ML X5UNITS SQ SCH (21:00)
[2016-08-28] MEDS ORDERED: Insulin LISPRO 300 UNITS/3 ML VIAL SQ SCH (21:00)
[2016-08-28 22:27] LABS: Phosphorous 2.9 mg/dL (2.3-4.7); Potassium 3.6 mEq/L (3.5-4.5)
[2016-08-28 22:28] LABS: BUN/Creatinine Ratio 13 (6-26); Blood Urea Nitrogen 12 mg/dL (7-20); Calcium 8.6 mg/dL (8.6-10.8); Carbon Dioxide 23 mEq/L (19-29); Chloride 106 mEq/L (98-109); Glucose 158 mg/dL (70-99); Osmolality,Calculated 289 (280-300); Potassium 3.6 mEq/L (3.5-4.5); Sodium 138 mEq/L (136-145); eGFR For African Americans > 60 (> 60); eGFR For Non-African Americans > 60 (> 60)
[2016-08-29] MEDS: Magnesium Sulfate 2 GM in D5% in Water 100 ML IVPB PRN (00:25)
[2016-08-29] MEDS: Ipratropium/Albuterol Neb 3 ML IH SCH ×2 (04:08→10:43)
[2016-08-29] MEDS ORDERED: *HR* Enoxaparin 40 MG/0.4 ML SYRINGE SQ SCH (06:00)
[2016-08-29 06:27] LABS: Basophils # 0.1 K/mcL (0.0-0.2); Basophils % 0.5 %; Eosinophils # 0.4 K/mcL (0.0-0.6); Hematocrit 38.7 % (35.3-44.9); Hemoglobin 12.8 g/dL (11.5-15.4); Immature Granulocytes % 0.7 % (0-4); Lymphocytes # 2.4 K/mcL (0.6-4.6); Lymphocytes % 24.3 %; Mean Corpuscular HGB Conc 33.1 g/dL (31.6-35.5); Mean Corpuscular Hemoglobin 28.5 pg (28.0-33.3); Mean Corpuscular Volume 86.2 fL (83.0-100.0); Mean Platelet Volume 11.7 fL (9.4-12.4); Monocytes # 0.5 K/mcL (0.0-1.3); Monocytes % 5.1 %; Neutrophils # 6.5 K/mcL (1.6-8.9); Platelet Count 177 K/mcL (140-400); Red Blood Count 4.49 M/mcL (3.82-4.97); Red Cell Distribution Width 13.2 % (11.5-14.5); Segmented Neutrophils % 65.4 %
[2016-08-29] MEDS: Acetaminophen 325 MG TABLET PO PRN (06:28)
[2016-08-29 06:40] LABS: BUN/Creatinine Ratio 17 (6-26); Blood Urea Nitrogen 14 mg/dL (7-20); Calcium 8.6 mg/dL (8.6-10.8); Carbon Dioxide 25 mEq/L (19-29); Chloride 108 mEq/L (98-109); Glucose 158 mg/dL (70-99); Osmolality,Calculated 294 (280-300); Sodium 140 mEq/L (136-145); eGFR For African Americans > 60 (> 60); eGFR For Non-African Americans > 60 (> 60)
[2016-08-29 07:31] VITALS: BP 125/76
[2016-08-29] MEDS: Saline Nasal Spray 44 ML BOTTLE NS SCH (08:49)
[2016-08-29] MEDS: Nicotine 21 MG PATCH.TD24 TD SCH (08:49)
[2016-08-29] MEDS: Insulin LISPRO 300 UNITS/3 ML VIAL SQ SCH (08:50)
[2016-08-29] MEDS: Loratadine 10 MG TABLET PO SCH (08:50)
[2016-08-29] MEDS ORDERED: Fluticasone Propionate Nasal 50 MCG/SPRAY BOTTLE NS SCH (09:00)
== END 2016-08-29 11:10 | disposition home or self-care (01) ==
LOC: EMEROO 19:55 → 2NNU 19:55 → SUATTDRO 22:09 → 2NNU 08-28 00:13
PROVIDERS: ADMIT Internal Medicine; ATTEND Internal Medicine